=== PATIENT | female | born 1960 | race African-American/Black ===

== ENCOUNTER 2017-07-29 09:27 | Inpatient (IN) | payer MEDICARE, OTHER ==
[2017-07-29] VITALS (8 sets, daily range): BP systolic 107–147; BP diastolic 63–83; PULSE 81–107; RESP 16–20; TEMP 97.8–98.8; O2SAT 94–96
[~2017-07-29] VITALS: Ht 170.2 cm; Wt 161.6 kg
[~2017-07-29 09:27] MED LIST: ADVA250A INH; FERR324T4 PO; LEVEMIR SQ; LISI-363 PO; METF850T PO; NOVOLOGSS; STOO100C PO; WARF7.5 PO
[2017-07-29] MEDS ORDERED: METF1000 PO (09:52)
[2017-07-29] MEDS ORDERED: BP MED (09:52)
[2017-07-29] MEDS ORDERED: STATIN (09:52)
[2017-07-29] MEDS ORDERED: FURO20TA PO (09:52)
[2017-07-29] MEDS ORDERED: [UNRECOGNIZED DRUG - REMARK] (09:52)
[2017-07-29] MEDS ORDERED: XARE20TA PO (09:52)
[2017-07-29] MEDS ORDERED: LISI40TA PO (09:52)
--- NOTE | 2017-07-29 09:58 | PD ---
HPI Chief Complaint: GI Complaint Time Seen by Provider: 09:50 Travel History International Travel<30 days: No Contact w/Intl Traveler<30days: No Traveled to known affect area: No History of Present Illness HPI This 57-year-old female is complaining of vomiting and diarrhea. sHe started getting sick last Friday. The diarrhea has slowed down but she has persistent vomiting. She sometimes gets abdominal pain prior to the vomiting. She gets a warm feeling in her stomach. She has no history of abdominal surgery. She has a history of diabetes for over 20 years. She is currently on metformin and a nightly injection. She had been out of her metformin for several days up until a few days ago. 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 She has had a wound on her right foot for several years. She dresses the wound herself daily. 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 It has been draining purulent material. She says it has not changed for some time. PFSH Past Medical History Hx Anticoagulant Therapy: Yes (XERALTO) Arthritis: Yes Asthma: Yes Cancer: No Cardiovascular Problems: Yes High Cholesterol: Yes Diabetes: Yes Patient Takes Glucophage: Yes Diminished Hearing: No Endocrine: No Genitourinary: No Hypertension: Yes Implanted Vascular Access Dvce: No Musculoskeletal: Yes Neurologic: No Psychiatric: No Reproductive: No Respiratory: Yes (BRONCHITIS ) Sleep Apnea: Yes ?: Not Menopausal: Yes : 2 Para: 2 Tubal Ligation: Yes Past Surgical History Eye Surgery: Yes Gynecologic Surgery: Yes (TUBAL LIGATION) Other Surgery: Yes (RIGHT FOOT I AND D ) Social History Alcohol Use: No Tobacco Use: No Substance Use: No Allergies-Medications (Allergen,Severity, Reaction): Coded Allergies: Sulfa (Sulfonamide Antibiotics) (Unverified Allergy, Unknown, DIFFICULTY BREATHING, 07/29/17) Reported Meds & Prescriptions Reported Meds & Active Scripts Active Reported [Insulin Unk] Unknown Dose [Statin] [Bp Med] Furosemide 20 Mg Tab 20 Mg PO BID Metformin (Metformin HCl) 1,000 Mg Tab 1,000 Mg PO BIDPC Lisinopril 40 Mg Tab 40 Mg PO DAILY Xarelto (Rivaroxaban) 20 Mg Tab 20 Mg PO DAILY Review of Systems General / Constitutional: No: Fever, Chills Eyes: No: Diploplia, Blurred Vision HENT: No: Headaches, Vertigo Cardiovascular: No: Chest Pain or Discomfort, Palpitations Respiratory: No: Cough, Shortness of Breath Gastrointestinal: Positive: Nausea, Vomiting, Diarrhea, Abdominal Pain Genitourinary: No: Urgency, Frequency Skin: No Rash, No Itching Neurologic: Positive: Weakness Psychiatric: No: Anxiety Endocrine: No: Heat Intolerance, Cold Intolerance Hematologic/Lymphatic: No: Easy Bruising Physical Exam Narrative GENERAL: Well-developed female SKIN: Focused skin assessment warm/dry. HEAD: Atraumatic. Normocephalic. EYES: Pupils equal and round. No scleral icterus. No injection or drainage. ENT: No nasal bleeding or discharge. Mucous membranes pink and moist. NECK: Trachea midline. No JVD. CARDIOVASCULAR: Regular rate and rhythm. No murmur appreciated. RESPIRATORY: No accessory muscle use. Clear to auscultation. Breath sounds equal bilaterally. GASTROINTESTINAL: Abdomen soft, obese, non-tender, nondistended. Hepatic and splenic margins not palpable. MUSCULOSKELETAL: No obvious deformities. No clubbing. No cyanosis. No edema. The right foot has a large open area on the plantar surface which is draining purulent material NEUROLOGICAL: Awake and alert. No obvious cranial nerve deficits. Motor grossly within normal limits. Normal speech. PSYCHIATRIC: Appropriate mood and affect; insight and judgment normal. Data Data Last Documented VS Vital Signs Date Time Temp Pulse Resp B/P (MAP) Pulse Ox O2 Delivery O2 Flow Rate FiO2 07/29/17 12:05 105 20 127/70 (89) 95 07/29/17 09:30 98.6 Orders Orders Complete Blood Count With Diff (07/29/17 09:55) Comprehensive Metabolic Panel (07/29/17 09:55) Lipase (07/29/17 09:55) Urinalysis - C+S If Indicated (07/29/17 09:55) Sodium Chlor 0.9% 1000 Ml Inj (Ns 1000 M (07/29/17 10:00) Ondansetron Inj (Zofran Inj) (07/29/17 10:00) Beta Hydroxybutyrate (Acetone) (07/29/17 10:53) Insulin Human Regular Inj (Novolin R Inj (07/29/17 11:00) Ct Abd/Pel W/O Iv Contrast (07/29/17 10:55) Sodium Chlor 0.9% 1000 Ml Inj (Ns 1000 M (07/29/17 11:00) Ondansetron Inj (Zofran Inj) (07/29/17 11:00) Electrocardiogram (07/29/17 11:55) Wound Culture And Gram Stain (07/29/17 12:19) Foot, Complete (Bhf6vym) (07/29/17 12:21) Piperacil-Tazo 4.5 Gm Premix (Zosyn 4.5 (07/29/17 12:45) Vancomycin Inj (Vancomycin Inj) (07/29/17 12:45) Admit Order (Ed Use Only) (07/29/17 12:40) Labs Laboratory Tests Test 07/29/17 10:00 07/29/17 10:10 White Blood Count 15.7 TH/MM3 Red Blood Count 3.92 MIL/MM3 Hemoglobin 11.9 GM/DL Hematocrit 35.0 % Mean Corpuscular Volume 89.4 FL Mean Corpuscular Hemoglobin 30.4 PG Mean Corpuscular Hemoglobin Concent 34.0 % Red Cell Distribution Width 13.6 % Platelet Count 473 TH/MM3 Mean Platelet Volume 8.1 FL Neutrophils (%) (Auto) 79.7 % Lymphocytes (%) (Auto) 13.2 % Monocytes (%) (Auto) 4.0 % Eosinophils (%) (Auto) 0.7 % Basophils (%) (Auto) 2.4 % Neutrophils # (Auto) 12.5 TH/MM3 Lymphocytes # (Auto) 2.1 TH/MM3 Monocytes # (Auto) 0.6 TH/MM3 Eosinophils # (Auto) 0.1 TH/MM3 Basophils # (Auto) 0.4 TH/MM3 CBC Comment DIFF FINAL Differential Comment Blood Urea Nitrogen 24 MG/DL Creatinine 2.30 MG/DL Random Glucose 622 MG/DL Total Protein 9.9 GM/DL Albumin 2.4 GM/DL Calcium Level 9.3 MG/DL Alkaline Phosphatase 159 U/L Aspartate Amino Transf (AST/SGOT) 12 U/L Alanine Aminotransferase (ALT/SGPT) 17 U/L Total Bilirubin 0.2 MG/DL Sodium Level 131 MEQ/L Potassium Level 6.1 MEQ/L Chloride Level 93 MEQ/L Carbon Dioxide Level 30.0 MEQ/L Anion Gap 8 MEQ/L Estimat Glomerular Filtration Rate 26 ML/MIN Lipase 75 U/L B-Hydroxybutyrate 2.91 MMOL/L MDM Medical Decision Making Medical Screen Exam Complete: Yes Emergency Medical Condition: Yes Medical Record Reviewed: Yes Differential Diagnosis Differential includes gastroenteritis, dehydration, uncontrolled diabetes, bowel obstruction Narrative Course Sodium is 131 with potassium of 6.1. Her bicarb is 30. Blood sugar is 622. Her anion gap is only 8. She has been given IV fluids and insulin. CT scan has been ordered to assess for possible obstruction. CT is negative for obstruction is noted that she has diverticulosis without diverticulitis. There are no renal calculi. There is a small hiatal hernia and a large pelvic mass containing macroscopic fat likely a dermoid measuring 11 x 9 cm. Patient does have severe foot infection and will be started on Zosyn and vancomycin. X-ray is negative for evidence of osteomyelitis Diagnosis Primary Impression: Uncontrolled diabetes mellitus Additional Impression: Diabetic foot infection Admitting Information Admitting Physician Requests: Admit Wes Pierre MD Jul 29, 2017 09:58
[2017-07-29] MEDS ORDERED: SODIUM CHLOR 0.9% 1000 ML INJ 1,000 ML IV ONE ×2 (10:00→14:45)
[2017-07-29] MEDS ORDERED: ONDANSETRON HCL 4 MG/2 ML VIAL IV PUSH ONE ×2 (10:00→11:00)
[2017-07-29 10:09] LABS: AUTOMATED NEUTROPHIL # 12.5 TH/MM3 (1.8-7.7); BASOPHIL # 0.4 TH/MM3 (0-0.2); BASOPHIL % 2.4 % (0.0-2.0); EOSINOPHIL # 0.1 TH/MM3 (0-0.4); EOSINOPHIL % 0.7 % (0.0-4.0); HEMOGLOBIN 11.9 GM/DL (11.6-15.3); LYMPH % 13.2 % (9.0-44.0); LYMPHOCYTE # 2.1 TH/MM3 (1.0-4.8); MEAN CELL VOLUME 89.4 FL (80.0-100.0); MEAN CORPUSCULAR HEMOGLOBIN 30.4 PG (27.0-34.0); MEAN PLATELET VOLUME 8.1 FL (7.0-11.0); MONOCYTE # 0.6 TH/MM3 (0-0.9); NEUT % 79.7 % (16.0-70.0); PLATELET COUNT 473 TH/MM3 (150-450); RED BLOOD COUNT 3.92 MIL/MM3 (4.00-5.30); RED CELL DISTRIBUTION WIDTH 13.6 % (11.6-17.2); WHITE BLOOD COUNT 15.7 TH/MM3 (4.0-11.0)
[2017-07-29 10:34] LABS: CHLORIDE 93 MEQ/L (98-107); SODIUM (NA) 131 MEQ/L (136-145)
[2017-07-29 10:38] LABS: ALBUMIN 2.4 GM/DL (3.4-5.0); BLOOD UREA NITROGEN 24 MG/DL (7-18); CALCIUM 9.3 MG/DL (8.5-10.1)
[2017-07-29 10:41] LABS: ALT (GPT) 17 U/L (10-53); AST (GOT) 12 U/L (15-37); GLOMERULAR FILTRATION RATE 26 ML/MIN (>89)
[2017-07-29 10:43] LABS: TOTAL BILIRUBIN ADULT 0.2 MG/DL (0.2-1.0); TOTAL PROTEIN 9.9 GM/DL (6.4-8.2)
[2017-07-29 10:45] LABS: ALKALINE PHOSPHATASE 159 U/L (45-117)
[2017-07-29 10:47] LABS: GLUCOSE,RANDOM 622 MG/DL (74-106)
[2017-07-29] MEDS ORDERED: INSULIN HUMAN REGULAR 1,000 UNITS/10 ML VIAL SQ ONE ×2 (11:00→14:45)
--- NOTE | 2017-07-29 12:09 | RADRPT ---
EXAM DATE/TIME: 07/29/2017 11:48 [facility] COMPARISON: No previous studies available for comparison. INDICATIONS : Non specific abdominal pain and vomiting. ORAL CONTRAST: No oral contrast ingested. RADIATION DOSE: 34.96 CTDIvol (mGy) ; Patient body habitus MEDICAL HISTORY : Hypertension. Anticoagulant therapy. Diabetes. SURGICAL HISTORY : Tubal ligation. ENCOUNTER: Initial ACUITY: 4 - 6 days PAIN SCALE: 6/10 LOCATION: pelvis abdomen TECHNIQUE: Volumetric scanning of the abdomen and pelvis was performed. Using automated exposure control and ad justment of the mA and/or kV according to patient size, radiation dose was kept as low as reasonably achievable to obtain optimal diagnostic quality images. DICOM format image data is available electro nically for review and comparison. FINDINGS: LOWER LUNGS: The visualized lower lungs are clear. LIVER: Homogeneous density without lesion. There is no dilation of the biliary tree. No calcified gallston es. SPLEEN: Normal size without lesion. PANCREAS: Within normal limits. KIDNEYS: Normal in size and shape. There is no mass, stone, or hydronephrosis. ADRENAL GLANDS: Within normal limits. VASCULAR: There is no aortic aneurysm. Vascular calcifications. BOWEL/MESENTERY: Scattered diverticulosis without diverticulitis. There is no free intraperitoneal air or fluid. Thic kening of the distal esophagus with small hiatal hernia. ABDOMINAL WALL: Small fat-containing umbilical hernia. RETROPERITONEUM: There is no lymphadenopathy. BLADDER: No wall thickening or mass. REPRODUCTIVE: Large pelvic mass does contain some macroscopic fat could be related to large dermoid measuring 11.3 x 9.7 cm. INGUINAL: There is no lymphadenopathy or hernia. MUSCULOSKELETAL: Within normal limits for patient age. CONCLUSION: 1. Scattered diverticulosis without diverticulitis. 2. No renal calculi or hydronephrosis. 3. Small hiatal hernia and thickening of the distal because. 4. 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 Clinton Haji MD on July 29, 2017 at 12:04 Board Certified Radiologist. This report was verified electronically.
[2017-07-29] MEDS: SODIUM CHLOR 0.9% 1000 ML INJ 1,000 ML IV SCH ×5 (12:40→23:00)
--- NOTE | 2017-07-29 12:43 | RADRPT ---
EXAM DATE/TIME: 07/29/2017 12:24 [facility] COMPARISON: No previous studies available for comparison. INDICATIONS : Right foot wound on the plantar surface. MEDICAL HISTORY : Hypertension. Diabetes mellitus type II. SURGICAL HISTORY : None. ENCOUNTER: Initial ACUITY: >1 year PAIN SCORE: 5/10 LOCATION: Right plantar surface of foot. FINDINGS: 3 views of the right foot reveal pes planus. No radiopaque foreign body. No air within the subcutaneo us tissues. Atherosclerotic calcifications noted. Osteopenia observed. Osteoarthritis involving the g reat toe. Old trauma involving the proximal phalanx of the third toe. No acute fracture or dislocatio n. No cortical destruction. CONCLUSION: 1. No radiographic evidence to clearly suggest osteomyelitis. 2. Old trauma involving the proximal phalanx of the third toe. Kiko Mccarty Jr., MD on July 29, 2017 at 12:39 Board Certified Radiologist. This report was verified electronically.
[2017-07-29] MEDS ORDERED: PIPERACIL-TAZO 4.5 GM PREMIX 100 ML IV ONE (12:45)
[2017-07-29] MEDS ORDERED: VANCOMYCIN INJ 2,250 MG in SODIUM CHLORID 0.9% 500 ML INJ 500 ML IV ONE (12:45)
[2017-07-29] MEDS ORDERED: NALOXONE HCL 0.4 MG/ML AMP IV PUSH PRN (14:45)
[2017-07-29] MEDS ORDERED: GLUCAGON 1 MG/ML VIAL OTHER PRN (14:45)
[2017-07-29] MEDS ORDERED: SENNOSIDES 8.6 MG TAB PO PRN (14:45)
[2017-07-29] MEDS ORDERED: Vancomycin Consult Pharmacy 1 EA OTHER SCH (14:45)
[2017-07-29] MEDS ORDERED: SODIUM CHLORIDE 0.9% FLUSH 10 ML FLUSH IV FLUSH PRN (14:45)
[2017-07-29] MEDS ORDERED: VANCOMYCIN INJ 1,250 MG in SODIUM CHLOR 0.9% 250 ML INJ 250 ML IV SCH (14:45)
[2017-07-29] MEDS ORDERED: DEXTROSE 50% IN WATER 50 ML VIAL(D50) IV PUSH PRN (14:45)
[2017-07-29] MEDS ORDERED: ONDANSETRON HCL 4 MG/2 ML VIAL IVP PRN (14:45)
--- NOTE | 2017-07-29 14:53 | HHI.HP ---
[facility] Bharathi Miguel M.D. Admission Diagnosis UNCONTROLLED DIABETES, INFECTION RIGHT FOOT Diagnoses: Chief Complaint: Nausea and vomiting Travel History International Travel<30 Days: No Contact w/Intl Traveler <30 Da: No Traveled to Known Affected Are: No History of Present Illness This patient is a 57-year-old female with diabetes and hypertension. She recently relocated from [place] and in the last several weeks has found a primary care doctor. 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 Patient has some nausea and vomiting for the last 4 days. She has diarrhea and mid epigastric discomfort. She also noted her sugar was high at home. On arrival here it was over 600. Patient received some insulin. On exam the patient also has a right foot infection which has been going on for at least 5 months. She had been seeing a wound care doctor in [place] but has not followed up for the last several months that she has been here. She says there was a blister and it became much more foul-smelling in the last several days. She is tachycardic leukocytosis appears septic. She has severe abdominal pain with which is intermittent and not aggravated by food. She actually has not eaten because she was vomiting. She appears uremic with elevated potassium and acute kidney injury. Patient's been recommended for admission to the hospital Review of Systems Constitutional: DENIES: Diaphoretic episodes, Fatigue, Fever, Weight gain, Weight loss, Chills, Dizziness, Change in appetite, Night Sweats Endocrine: DENIES: Abnorml menstrual pattern, Heat/cold intolerance, Polydipsia , Polyuria, Polyphagia Eyes: DENIES: Blurred vision, Diplopia, Eye inflammation, Eye pain, Vision loss , Photosensitivity, Double Vision Ears, nose, mouth, throat: DENIES: Tinnitus, Hearing loss, Vertigo, Nasal discharge, Oral lesions, Throat pain, Hoarseness, Ear Pain, Running Nose, Epistaxis, Sinus Pain, Toothache, Odynophagia Respiratory: DENIES: Apneas, Cough, Snoring, Wheezing, Hemoptysis, Sputum production, Shortness of breath Cardiovascular: DENIES: Chest pain, Palpitations, Syncope, Dyspnea on Exertion , PND, Lower Extremity Edema, Orthopnea, Claudication Gastrointestinal: COMPLAINS OF: Abdominal pain, Nausea, Vomiting, Anorexia Genitourinary: DENIES: Abnormal vaginal bleeding, Dysmenorrhea, Dyspareunia, Sexual dysfunction, Urinary frequency, Urinary incontinence, Urgency, Hematuria , Dysuria, Nocturia, Vaginal discharge Musculoskeletal: DENIES: Joint pain, Muscle aches, Stiffness, Joint Swelling, Back pain, Neck pain Integumentary: DENIES: Abnormal pigmentation, Pruritus, Rash, Nail changes, Breast masses, Breast skin changes, Nipple discharge Hematologic/lymphatic: DENIES: Bruising, Lymphadenopathy Immunologic/allergic: DENIES: Eczema, Urticaria Neurologic: DENIES: Abnormal gait, Headache, Localized weakness, Paresthesias, Seizures, Speech Problems, Tremor, Poor Balance Psychiatric: DENIES: Anxiety, Confusion, Mood changes, Depression, Hallucinations, Agitation, Suicidal Ideation, Homicidal Ideation, Delusions Except as stated in HPI: all other systems reviewed are Neg Past Family Social History Past Medical History Hypertension Diabetes mellitus type 2 History of venous thrombo-embolic event Past Surgical History Right foot, tubal ligation Reported Medications Reviewed in the EMR, no new antibiotics Allergies: Coded Allergies: Sulfa (Sulfonamide Antibiotics) (Unverified Allergy, Unknown, DIFFICULTY BREATHING, 07/29/17) Active Ordered Medications Reviewed in the EMR Family History Mother and father had diabetes, brother has diabetes, sisters alive and well Physical Exam Vital Signs Vital Signs Date Time Temp Pulse Resp B/P (MAP) Pulse Ox O2 Delivery O2 Flow Rate FiO2 07/29/17 13:00 103 20 126/83 (97) 96 07/29/17 12:05 105 20 127/70 (89) 95 07/29/17 11:06 107 20 107/74 (85) 96 07/29/17 10:14 104 20 141/63 (89) 94 07/29/17 09:30 98.6 96 16 140/69 (92) 96 Physical Exam GENERAL: This is a well-nourished, obese female complaining of abdominal discomfort SKIN: No rashes, ecchymoses or lesions. Cool and dry. HEAD: Atraumatic. Normocephalic. No temporal or scalp tenderness. EYES: Pupils equal round and reactive. Extraocular motions intact. No scleral icterus. No injection or drainage. ENT: Nose without bleeding, purulent drainage or septal hematoma. Throat without erythema, tonsillar hypertrophy or exudate. Uvula midline. Airway patent. NECK: Trachea midline. No JVD or lymphadenopathy. Supple, nontender, no meningeal signs. CARDIOVASCULAR: Regular rate and rhythm without murmurs, gallops, or rubs. RESPIRATORY: Clear to auscultation. Breath sounds equal bilaterally. No wheezes , rales, or rhonchi. GASTROINTESTINAL: Abdomen soft, non-tender, nondistended. No hepato-splenomegaly , or palpable masses. No guarding. MUSCULOSKELETAL: Right foot with extreme sloughing, foul-smelling ulceration from the heel to the ball of the foot and encompassing the entire plantar surface, upper extremities without clubbing, cyanosis, or edema. No joint tenderness, effusion, or edema noted. No calf tenderness. Negative Homans sign bilaterally. NEUROLOGICAL: Awake and alert. Cranial nerves II through XII intact. Motor and sensory grossly within normal limits. Five out of 5 muscle strength in all muscle groups. Normal speech. Laboratory Laboratory Tests Test 07/29/17 10:00 07/29/17 10:10 07/29/17 14:20 White Blood Count 15.7 Red Blood Count 3.92 Hemoglobin 11.9 Hematocrit 35.0 Mean Corpuscular Volume 89.4 Mean Corpuscular Hemoglobin 30.4 Mean Corpuscular Hemoglobin Concent 34.0 Red Cell Distribution Width 13.6 Platelet Count 473 Mean Platelet Volume 8.1 Neutrophils (%) (Auto) 79.7 Lymphocytes (%) (Auto) 13.2 Monocytes (%) (Auto) 4.0 Eosinophils (%) (Auto) 0.7 Basophils (%) (Auto) 2.4 Neutrophils # (Auto) 12.5 Lymphocytes # (Auto) 2.1 Monocytes # (Auto) 0.6 Eosinophils # (Auto) 0.1 Basophils # (Auto) 0.4 CBC Comment DIFF FINAL Differential Comment Blood Urea Nitrogen 24 Creatinine 2.30 Random Glucose 622 Total Protein 9.9 Albumin 2.4 Calcium Level 9.3 Alkaline Phosphatase 159 Aspartate Amino Transf (AST/SGOT) 12 Alanine Aminotransferase (ALT/SGPT) 17 Total Bilirubin 0.2 Sodium Level 131 Potassium Level 6.1 Chloride Level 93 Carbon Dioxide Level 30.0 Anion Gap 8 Estimat Glomerular Filtration Rate 26 Lipase 75 B-Hydroxybutyrate 2.91 Date/Time Source Procedure Growth Status 07/29/17 12:25 Wound Foot Gram Stain Pending Received 07/29/17 12:25 Wound Foot Wound Culture Pending Received Result Diagram: 07/29/17 1000 07/29/17 1000 Imaging Last Impressions Abdomen/Pelvis CT 07/29/17 1055 Signed Impressions: Service Date/Time: Saturday, July 29, 2017 11:48 - CONCLUSION: 1. Scattered diverticulosis without diverticulitis. 2. No renal calculi or hydronephrosis. 3. Small hiatal hernia and thickening of the distal because. 4. 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 Clinton Haji MD Septic Shock Reassessment Septic shock perfusion: reassessment completed Caprini VTE Risk Assessment Caprini VTE Risk Assessment: Mod/High Risk (score >= 2) VTE Pharm Contraindication: Coagulopathy,INR elevated Caprini Risk Assessment Model Point Value = 1 Point Value = 2 Point Value = 3 Point Value = 5 Age 41-60 Minor surgery BMI > 25 kg/m2 Swollen legs Varicose veins or History of unexplained or recurrent spontaneous Oral contraceptives or hormone replacement Sepsis (< 1 month) Serious lung disease, including pneumonia (< 1 month) Abnormal pulmonary function Acute myocardial infarction Congestive heart failure (< 1 month) History of inflammatory bowel disease Medical patient at bed rest Age 61-74 Arthroscopic surgery Major open surgery (> 45 min) Laparoscopic surgery (> 45 min) Malignancy Confined to bed (> 72 hours) Immobilizing plaster cast Central venous access Age >= 75 History of VTE Family history of VTE Factor V Leiden Prothrombin [id number] Lupus anticoagulant Anticardiolipin antibodies Elevated serum homocysteine Heparin-induced thrombocytopenia Other congenital or acquired thrombophilia Stroke (< 1 month) Elective arthroplasty Hip, pelvis, or leg fracture Acute spinal cord injury (< 1 month) Prophylaxis Regimen Total Risk Factor Score Risk Level Prophylaxis Regimen 0-1 Low Early ambulation 2 Moderate Order ONE of the following: *Sequential Compression Device (SCD) *Heparin 5000 units SQ BID 3-4 Higher Order ONE of the following medications: *Heparin 5000 units SQ TID *Enoxaparin/Lovenox 40 mg SQ daily (WT < 150 kg, CrCl > 30 mL/min) *Enoxaparin/Lovenox 30 mg SQ daily (WT < 150 kg, CrCl > 10-29 mL/min) *Enoxaparin/Lovenox 30 mg SQ BID (WT < 150 kg, CrCl > 30 mL/min) AND/OR *Sequential Compression Device (SCD) 5 or more Highest Order ONE of the following medications: *Heparin 5000 units SQ TID (Preferred with Epidurals) *Enoxaparin/Lovenox 40 mg SQ daily (WT < 150 kg, CrCl > 30 mL/min) *Enoxaparin/Lovenox 30 mg SQ daily (WT < 150 kg, CrCl > 10-29 mL/min) *Enoxaparin/Lovenox 30 mg SQ BID (WT < 150 kg, CrCl > 30 mL/min) AND *Sequential Compression Device (SCD) Assessment and Plan Problem List: (1) Pelvic mass ICD Code: R19.00 - Intra-abdominal and pelvic swelling, mass and lump, unspecified site Plan: follow clinically (2) Diabetic foot infection ICD Code: E11.69 - Type 2 diabetes mellitus with other specified complication; L08.9 - Local infection of the skin and subcutaneous tissue, unspecified Status: Acute Plan: We will check MRI to rule out osteomyelitis in this infection Continue vancomycin and Zosyn Follow-up with podiatry for possible surgical treatment With sepsis present on admission, continue IV hydration and follow-up blood cultures (3) Uncontrolled diabetes mellitus ICD Code: E11.65 - Type 2 diabetes mellitus with hyperglycemia Status: Acute Plan: Patient is not sure of her regimen at home other than she takes metformin We will hold metformin given patient's need for inpatient stay Continue with insulin per sliding scale plus Levemir and insulin with meals Follow hemoglobin A1c Patient education (4) CKD (chronic kidney disease) stage 3, GFR 30-59 ml/min ICD Code: N18.3 - Chronic kidney disease, stage 3 (moderate) Plan: Patient with nausea and vomiting and hyperkalemia, she may be uremic We will follow with nephrology Assessment and Plan Plan of care to determine hospital course Patient on Xarelto due to previous blood clot and will hold this and use heparin for now as patient may need surgery Code Status Full code Physician Certification 2 Midnight Certification Type: Admission for Inpatient Services Order for Inpatient Services The services are ordered in accordance with Medicare regulations or non- Medicare payer requirements, as applicable. In the case of services not specified as inpatient-only, they are appropriately provided as inpatient services in accordance with the 2-midnight benchmark. Estimated LOS (days): 4 4 days is the estimated time the patient will need to remain in the hospital, assuming treatment plan goals are met and no additional complications. Post-Hospital Plan: Yesenia Rice MD Jul 29, 2017 14:53
[2017-07-29 15:36] LABS: BICARBONATE 27.7 MEQ/L (21.0-32.0); CALCIUM 8.6 MG/DL (8.5-10.1); CREATININE 2.2 MG/DL (0.50-1.00)
--- NOTE | 2017-07-29 17:19 | RADRPT ---
EXAM DATE/TIME: 07/29/2017 16:31 [facility] COMPARISON: FOOT RIGHT COMPLETE ([id number]), July 29, 2017, 12:24. INDICATIONS : Abscess. Wound bottom of right foot MEDICAL HISTORY : Diabetes mellitus type 2. Hypertension. SURGICAL HISTORY : Tubal ligation. ENCOUNTER: Subsequent ACUITY: > 1 year PAIN SCORE: 5/10 LOCATION: Right foot TECHNIQUE: Multiplanar, multisequence MRI examination was performed without contrast. FINDINGS: BONE/CARTILAGE: There is normal signal throughout the bony structures. Mild primary degenerative changes are present. No abnormal bone marrow edema is demonstrated. TENDONS: Tendons appear to be grossly intact. MISCELLANEOUS: There is some nonspecific abnormal soft tissue along the dorsum of the foot. This is suggestive of ed bebo and granulomatous type tissue. No loculated fluid collections are demonstrated. This area of abno rmal soft tissue measures approximately 3.4 x 2.5 cm. On the sagittal images appears to disrupt the p lantar aponeurosis. CONCLUSION: 1. Focal abnormal collection of soft tissue along the dorsum of the foot measuring 2.5 x 3.4 cm. This is suggestive of a inflammatory process and/or granulomatous tissue. No loculated fluid collection i s seen to indicate an abscess. 2. No evidence of osteomyelitis. Raymond Arroyo MD on July 29, 2017 at 17:14 Board Certified Radiologist. This report was verified electronically.
[2017-07-29] MEDS: INSULIN ASPART SUPPLEMENTAL SCALE SQ SCH ×2 (18:55→22:53)
[2017-07-29] MEDS: INSULIN HUMAN REGULAR 1,000 UNITS/10 ML VIAL SQ SCH (18:56)
[2017-07-29] MEDS ORDERED: INSULIN DETEMIR 100 UNITS/ML VIAL SQ SCH (21:00)
[2017-07-29 22:53] LABS: BLOOD, URINE NEG (NEG); GLUCOSE,URINE 1000 OR GREATER mg/dL (NEG); KETONE, URINE TRACE mg/dL (NEG); NITRITE,URINE NEG (NEG); PH, URINE 5.5 (5.0-8.5); URINE COLOR YELLOW (YELLW/STRAW); URINE LEUKOCYTE ESTERASE NEG (NEG)
[2017-07-29 22:55] LABS: BILIRUBIN, URINE NEG (NEG)
[2017-07-29] MEDS: HEPARIN SODIUM - SQ 10,000 UNITS/ML VIAL SQ SCH (22:55)
[2017-07-29] MEDS: SODIUM CHLORIDE 0.9% FLUSH 10 ML FLUSH IV FLUSH SCH (22:57)
[2017-07-29 23:07] LABS: BACTERIA, URINE FEW /hpf; RBC, URINE 0-3 /hpf (0-3); WBC, URINE 0-2 /hpf (0-5)
[2017-07-29] MEDS: PIPERACIL-TAZO 4.5 GM PREMIX 100 ML IV SCH (23:30)
[2017-07-30] VITALS: BP 119/58; PULSE 91; RESP 20; TEMP 99.2; O2SAT 95
[2017-07-30] MEDS: PIPERACIL-TAZO 4.5 GM PREMIX 100 ML IV SCH (05:13)
[2017-07-30] MEDS: SODIUM CHLOR 0.9% 1000 ML INJ 1,000 ML IV SCH ×3 (05:16→21:01)
--- NOTE | 2017-07-30 07:32 | PD.POD ---
Past Med/Surg/Social History Social History Smoking Status: Never Smoker Objective Vital Signs Vital Signs Date Time Temp Pulse Resp B/P (MAP) Pulse Ox O2 Delivery O2 Flow Rate FiO2 07/30/17 00:00 99.2 91 20 119/58 (78) 95 07/29/17 21:00 103 07/29/17 20:00 98.8 100 20 125/64 (84) 96 07/29/17 17:10 07/29/17 17:10 97.8 81 20 147/68 (94) 95 07/29/17 13:00 103 20 126/83 (97) 96 07/29/17 12:05 105 20 127/70 (89) 95 07/29/17 11:06 107 20 107/74 (85) 96 07/29/17 10:14 104 20 141/63 (89) 94 07/29/17 09:30 98.6 96 16 140/69 (92) 96 Coded Allergies: Sulfa (Sulfonamide Antibiotics) (Unverified Allergy, Unknown, DIFFICULTY BREATHING, 07/29/17) Assessment & Plan A/P FULL CONSULT DICTATED. Right diabetic foot ulcer with infection Charcot Plan for operative debridement will obtain deep cultures and likely wound VAC application. Will likely need long-term IV antibiotics and strict hyperglycemic control. Reviewed case with Dr. Martinez who will likely form surgery in the Jagdish Fowler DPM Jul 30, 2017 07:32
[2017-07-30 07:33] LABS: AUTOMATED NEUTROPHIL # 9.7 TH/MM3 (1.8-7.7); BASOPHIL # 0.1 TH/MM3 (0-0.2); BASOPHIL % 0.5 % (0.0-2.0); EOSINOPHIL # 0.4 TH/MM3 (0-0.4); EOSINOPHIL % 3.2 % (0.0-4.0); HEMATOCRIT 30.2 % (35.0-46.0); HEMOGLOBIN 9.8 GM/DL (11.6-15.3); LYMPH % 19.6 % (9.0-44.0); LYMPHOCYTE # 2.6 TH/MM3 (1.0-4.8); MEAN CELL VOLUME 88.3 FL (80.0-100.0); MEAN CORPUSCULAR HEMOGLOBIN 28.8 PG (27.0-34.0); MEAN CORPUSCULAR HGB CONC 32.5 % (32.0-36.0); MEAN PLATELET VOLUME 7.8 FL (7.0-11.0); MONO % 3.9 % (0.0-8.0); MONOCYTE # 0.5 TH/MM3 (0-0.9); NEUT % 72.8 % (16.0-70.0); PLATELET COUNT 439 TH/MM3 (150-450); RED BLOOD COUNT 3.41 MIL/MM3 (4.00-5.30); RED CELL DISTRIBUTION WIDTH 13.2 % (11.6-17.2); WHITE BLOOD COUNT 13.3 TH/MM3 (4.0-11.0)
[2017-07-30 07:53] LABS: CHLORIDE 103 MEQ/L (98-107); SODIUM (NA) 139 MEQ/L (136-145)
[2017-07-30 07:57] LABS: BICARBONATE 28.7 MEQ/L (21.0-32.0); CALCIUM 8.1 MG/DL (8.5-10.1)
[2017-07-30 08:00] VITALS: BP 120/64; PULSE 90; PULSE 91; RESP 14; TEMP 98.3; O2SAT 97
[2017-07-30 08:18] LABS: ALKALINE PHOSPHATASE 118 U/L (45-117); ALT (GPT) 10 U/L (10-53); AST (GOT) 7 U/L (15-37); BLOOD UREA NITROGEN 23 MG/DL (7-18); GLOMERULAR FILTRATION RATE 26 ML/MIN (>89); GLUCOSE,RANDOM 264 MG/DL (74-106); TOTAL BILIRUBIN ADULT 0.4 MG/DL (0.2-1.0); TOTAL PROTEIN 7.9 GM/DL (6.4-8.2)
[2017-07-30 08:30] VITALS: O2SAT 95
[2017-07-30] MEDS: INSULIN ASPART SUPPLEMENTAL SCALE SQ SCH ×4 (08:52→22:08)
[2017-07-30] MEDS: SODIUM CHLORIDE 0.9% FLUSH 10 ML FLUSH IV FLUSH SCH ×2 (08:53→22:14)
[2017-07-30] MEDS: HEPARIN SODIUM - SQ 10,000 UNITS/ML VIAL SQ SCH ×2 (08:53→22:07)
[2017-07-30] MEDS: LISINOPRIL 20 MG TAB PO SCH (08:53)
[2017-07-30] MEDS ORDERED: RIVAROXABAN 20 MG TAB PO SCH (09:00)
--- NOTE | 2017-07-30 09:07 | HHI.PR ---
Subjective Remarks Follow-up uncontrolled diabetes and right infected foot. Patient seen and examined, sitting on side of bed eating breakfast. Denies any pain. Denies any acute complaints. Podiatry in today to see patient, anticipate I&D in OR tomorrow with wound VAC placement. Vital signs are stable. Afebrile. Objective Vitals Vital Signs Date Time Temp Pulse Resp B/P (MAP) Pulse Ox O2 Delivery O2 Flow Rate FiO2 07/30/17 00:00 99.2 91 20 119/58 (78) 95 07/29/17 21:00 103 07/29/17 20:00 98.8 100 20 125/64 (84) 96 07/29/17 17:10 07/29/17 17:10 97.8 81 20 147/68 (94) 95 07/29/17 13:00 103 20 126/83 (97) 96 07/29/17 12:05 105 20 127/70 (89) 95 07/29/17 11:06 107 20 107/74 (85) 96 07/29/17 10:14 104 20 141/63 (89) 94 07/29/17 09:30 98.6 96 16 140/69 (92) 96 I/O 07/29/17 07/29/17 07/29/17 07/30/17 07/30/17 07/30/17 07:00 15:00 23:00 07:00 15:00 23:00 Intake Total 1680 ml Output Total 1000 ml Balance 680 ml Intake Oral 480 ml IV Total 1200 ml Output Urine Total 1000 ml Result Diagram: 07/30/17 0700 07/30/17 0700 Imaging Last Impressions Foot X-Ray 07/29/17 1221 Signed Impressions: Service Date/Time: Saturday, July 29, 2017 12:24 - CONCLUSION: 1. No radiographic evidence to clearly suggest osteomyelitis. 2. Old trauma involving the proximal phalanx of the third toe. Kiko Mccarty Jr., MD Abdomen/Pelvis CT 07/29/17 1055 Signed Impressions: Service Date/Time: Saturday, July 29, 2017 11:48 - CONCLUSION: 1. Scattered diverticulosis without diverticulitis. 2. No renal calculi or hydronephrosis. 3. Small hiatal hernia and thickening of the distal because. 4. 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 Clinton Haji MD Foot MRI 07/29/17 0000 Signed Impressions: Service Date/Time: Saturday, July 29, 2017 16:31 - CONCLUSION: 1. Focal abnormal collection of soft tissue along the dorsum of the foot measuring 2.5 x 3.4 cm. This is suggestive of a inflammatory process and/or granulomatous tissue. No loculated fluid collection is seen to indicate an abscess. 2. No evidence of osteomyelitis. Raymond Arroyo MD Objective Remarks GENERAL: Well-developed, obese female patient in NAD. SKIN: Warm and dry. No rash. HEAD: Normocephalic. Atraumatic. EYES: Pupils equal and round. No scleral icterus. No injection or drainage. ENT: No nasal bleeding or discharge. Mucous membranes pink and moist. NECK: Supple. Trachea midline. CARDIOVASCULAR: Regular rate and rhythm. S1, S2 noted. No murmur appreciated. RESPIRATORY: No accessory muscle use. Clear to auscultation. Breath sounds equal bilaterally. GASTROINTESTINAL: Abdomen soft, non-tender, nondistended. Normoactive bowel sounds x4. MUSCULOSKELETAL: Right lower extremity dressing in place to infected wound. Right pedal pulses 1+. NEUROLOGICAL: Awake and alert. No obvious cranial nerve deficits. Motor grossly within normal limits. 5/5 muscle strength in bilateral upper and lower extremities. Normal speech. PSYCHIATRIC: Appropriate mood and affect; insight and judgment normal. A/P Problem List: (1) Pelvic mass ICD Code: R19.00 - Intra-abdominal and pelvic swelling, mass and lump, unspecified site Plan: Follow clinically (2) Diabetic foot infection ICD Code: E11.69 - Type 2 diabetes mellitus with other specified complication; L08.9 - Local infection of the skin and subcutaneous tissue, unspecified Status: Acute Plan: MRI of the right foot showing no osteomyelitis and no abscess. Continue vancomycin and Zosyn. Consult placed to ID, may need extended antibiotic coverage per podiatry recommendations. Follow-up with podiatry for possible surgical treatment tomorrow for I&D and wound vac placement. With sepsis present on admission, continue IV hydration and follow-up blood cultures (3) Uncontrolled diabetes mellitus ICD Code: E11.65 - Type 2 diabetes mellitus with hyperglycemia Status: Acute Plan: Patient is not sure of her regimen at home other than she takes metformin. We will hold metformin given patient's need for inpatient stay. Continue with insulin per sliding scale plus Levemir and insulin with meals. Increase Levemir twice daily. Follow hemoglobin A1c still pending. Start atorvastatin, mild hypertriglyceridemia. Patient education. (4) CKD (chronic kidney disease) stage 3, GFR 30-59 ml/min ICD Code: N18.3 - Chronic kidney disease, stage 3 (moderate) Plan: Patient with nausea and vomiting and hyperkalemia, she may be uremic Hyperkalemia improving. 4.2 today. We will follow with nephrology, appreciate further recommendations. Discharge Planning Patient will undergo I&D of right infected foot tomorrow in the OR with wound VAC placement, 2-3 days per discharge. Izabel Stiles Jul 30, 2017 09:07
--- NOTE | 2017-07-30 09:08 | MB ---
cc: Jagdish Valderrama DPM DATE OF CONSULT: REASON FOR CONSULTATION: Right diabetic foot ulcer. 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 Apparently, this has closed to a pinpoint area in previous years, but now she is dealing with significant opening of the wound, drainage, nausea and uncontrolled glucose. Currently I am seeing the patient bedside. She denies any current nausea or vomiting and she states she is improving. PAST MEDICAL HISTORY: Positive for diabetes, hypertension, history of venous thromboembolic event. PAST SURGICAL HISTORY: Right foot likely debridement and wound VAC, history of tubal ligation. REPORTED INPATIENT MEDICATIONS REVIEWED : The patient is receiving vancomycin and Zosyn. ALLERGIES: SULFA PHYSICAL EXAMINATION: VITAL SIGNS: Temperature 99.2, pulse rate 91, respiratory rate 20, blood pressure 119/58, she is satting 95% on room air. This is an alert and oriented female seen bedside exhibiting nonlabored respirations. The right lower extremity is examined. There is noted to be a rocker-bottom foot type with the posterior heel hemorrhagic ulcer, wet eschar with minimal periwound erythema. There is serous drainage of the plantar aspect of the midfoot. There is noted to be an expansile ulcer with mixed fibrotic granular base. The wound measurements are approximately 12 cm x 6 cm. There is a mely-hyperkeratotic rim. There is fissure undermining noted at the wound periphery. It does probe deep. I am unsure if this probes directly to bone, but there is no bone visible or tendon visible through the wound. There is serous mixed purulent drainage. There is moderate malodor but no obvious soft tissue emphysema. There is induration and edema to the dorsum of the foot. There is no palpable soft tissue crepitus. There is moderate contractures of the digits. There is range of motion of the ankle, limited range of motion of the hind foot and forefoot. Sensation is significantly decreased to the bilateral extremities below the bilateral ankle. Pulses appear to be palpable, decreased and the foot is warm. LABORATORY DATA: White blood cell, there is a trend 15.7 down to 13.3. Hemoglobin and hematocrit 9 and 30. Platelet count is 439. Chem-7 sodium is 139, potassium 4.2, chloride 103. CO2 28.7. BUN is 24, creatinine 2.2. Random glucose is 457. Wound culture is ordered and pending. Blood culture ordered and pending. IMAGING FINDINGS: Plain film x-ray did not show any obvious soft tissue emphysema, there is no obvious gas within the tissue, there appears to be a significant pes planus with evidence of calcified arteries, there appears to be a severe arthritic finding seen at the talonavicular, calcaneocuboid and midfoot joint and it appears to be intact without any active signs of Charcot. MRI findings: There is no distinct signs of osteomyelitis or drainable abscess but there is mention of a focal abnormal collection of soft tissue along the dorsum of the foot suggestive of an inflammatory process. ASSESSMENT AND PLAN: Right diabetic foot ulcer, underlying Charcot with heel ulcer. The plan is to continue IV antibiotics, operative debridement with likely application of wound VAC will take place in the next 24-48 hours pending OR availability. The patient appears to be improving. Will likely need Infectious Disease consultation. Initially I do not think the patient has any decreased vascular flow; however, we will make note at the time of surgery if there is decreased bleeding and move forward with the appropriate consultation if needed at that time. I had a long discussion with the patient regarding the need for strict hyperglycemic control. She will need to be non-weightbearing of the right lower extremity. She may need physical therapy evaluation and wheelchair training. There is an elevated risk of below-knee amputation in this patient eventually. If the ulcer continues to grow larger, involve the heel bone or the midfoot, there is a high chance that this foot would break down and become a nonfunctional appendage and she would need a below-knee amputation. She wishes for all limb salvage efforts and I agree that is what we will try at this time. I discussed the case in great detail with Dr. Martinez who will be assuming care within the next 1-2 days. ERI Aguilar/TL/ , 08:22 AM , 08:52 AM
[2017-07-30] MEDS: INSULIN HUMAN REGULAR 1,000 UNITS/10 ML VIAL SQ SCH ×3 (09:20→17:58)
[2017-07-30 09:48] LABS: CHOLESTEROL 115 MG/DL (120-200)
[2017-07-30 09:50] LABS: CHOLESTEROL/ HDL RATIO 3.08 RATIO; HDL CHOLESTEROL 37.3 MG/DL (40.0-60.0); LDL CHOLESTEROL 40 MG/DL (0-99); TRIGLYCERIDES 189 MG/DL (42-150)
[2017-07-30] MEDS ORDERED: PNEUMOCOCCAL POLYVALENT INJ 25 MCG/0.5 ML SYR IM ONE (10:00)
[2017-07-30 12:00] VITALS: BP 137/79; PULSE 84; RESP 16; TEMP 98.2; O2SAT 92
--- NOTE | 2017-07-30 14:42 | PD.CONS ---
HPI Consult Requested By Reason for Consult Chronic kidney disease? Acute renal insufficiency? Primary Care Physician Bharathi Miguel M.D. History of Present Illness This patient is a 57-year-old Afro-Russian female with a history of long- standing diabetes mellitus and hypertension and from the records I reviewed some noncompliance with medical care. She was previously hospitalized at this institution back in October 2012. At that time she was admitted with a left lower extremity diabetic wounds and was noted to have acute renal insufficiency. She subsequently left the hospital AMA. On October 24, 2012 her creatinine level was noted to be 2.09. She subsequently was admitted to [facility] and her creatinine level improved at time of discharge 0.6. Appears that the patient went up north to [place]. Patient is a very poor historian when it comes to details regarding her previous medical history. She cannot indicates to me what continuity of care she had out of state or the name of the physician that she was seeing a when her last bar to study was done prior to this admission. Subsequently admitted to this institution with a history of nausea and vomiting. Noted to have significant hyperglycemia. Creatinine level on presentation was elevated and is currently 2.3 at time of consultation with an estimated GFR of 26. Also anemic with a hemoglobin of 9.8. Patient indicates that she was using Aleve twice daily for about 7 days prior to presentation. CT scan indicated the presence of a large pelvic mass but nothing significant reported as far as her kidneys were concerned i.e. no hydronephrosis. Also on presentation patient noted to have diabetic ulcer lower extremity with drainage. Review of Systems Constitutional: DENIES: Diaphoretic episodes, Fatigue, Fever, Weight gain, Weight loss, Chills, Dizziness, Change in appetite, Night Sweats Eyes: DENIES: Blurred vision Cardiovascular: DENIES: Chest pain, Palpitations, Syncope, Dyspnea on Exertion , PND, Lower Extremity Edema, Orthopnea, Claudication Gastrointestinal: COMPLAINS OF: Nausea (on presentation), Vomiting (on presentation), DENIES: Abdominal pain, Black stools, Bloody stools, Constipation , Diarrhea, Difficulty Swallowing, Anorexia Musculoskeletal: COMPLAINS OF: Joint pain, DENIES: Muscle aches, Stiffness, Joint Swelling, Back pain, Neck pain Past Family Social History Allergies: Coded Allergies: Sulfa (Sulfonamide Antibiotics) (Unverified Allergy, Unknown, DIFFICULTY BREATHING, 07/29/17) Past Medical History Previous acute renal insufficiency back in 2012. Diabetes mellitus Hypertension. History of a venous thrombosis 2012?. Probable poor follow-up as well as medical care is concerned. Past Surgical History Noncontributory to current complaint. Reported Medications Reported Meds & Active Scripts Active Reported [Insulin Unk] Unknown Dose [Statin] [Bp Med] Furosemide 20 Mg Tab 20 Mg PO BID Metformin (Metformin HCl) 1,000 Mg Tab 1,000 Mg PO BIDPC Lisinopril 40 Mg Tab 40 Mg PO DAILY Xarelto (Rivaroxaban) 20 Mg Tab 20 Mg PO DAILY Active Ordered Medications Current Medications Sodium Chloride 1,000 ml @ 999 mls/hr BOLUS ONCE IV Last administered on at 10:06; Start 07/29/17 at 10:00; Stop 07/29/17 at 11:00; Status DC Ondansetron HCl (Zofran Inj) 4 mg ONCE ONCE IV PUSH Last administered on at 10:07; Start 07/29/17 at 10:00; Stop 07/29/17 at 10:02; Status DC Insulin Human Regular (NovoLIN R INJ) 15 units ONCE ONCE SQ Last administered on 07/29/17at 11:01; Start 07/29/17 at 11:00; Stop 07/29/17 at 11:01; Status DC Sodium Chloride 1,000 ml @ 250 mls/hr Q4H IV Last administered on 07/29/17at 12: 40; Start 07/29/17 at 11:00; Stop 07/30/17 at 00:30; Status DC Ondansetron HCl (Zofran Inj) 4 mg ONCE ONCE IV PUSH Last administered on at 11:03; Start 07/29/17 at 11:00; Stop 07/29/17 at 11:01; Status DC Piperacillin Sod/ Tazobactam Sod 100 ml @ 200 mls/hr ONCE ONCE IV Last administered on 07/29/17at 12:45; Start 07/29/17 at 12:45; Stop 07/29/17 at 13:14; Status DC Vancomycin HCl 2250 mg/Sodium Chloride 522.5 ml @ 250 mls/hr ONCE ONCE IV Last administered on 07/29/17at 13:57; Start 07/29/17 at 12:45; Stop 07/29/17 at 14: 50; Status DC Insulin Human Regular (NovoLIN R INJ) 15 units ONCE ONCE SQ Last administered on 07/29/17at 15:01; Start 07/29/17 at 14:45; Stop 07/29/17 at 14:54; Status DC Sodium Chloride 1,000 ml @ 100 mls/hr Q10H IV Last administered on 07/30/17at 12 :40; Start 07/29/17 at 14:37 Sodium Chloride (NS Flush) 2 ml UNSCH PRN IV FLUSH FLUSH AFTER USING IV ACCESS ; Start 07/29/17 at 14:45 Sodium Chloride (NS Flush) 2 ml BID IV FLUSH Last administered on 07/30/17at 08: 53; Start 07/29/17 at 21:00 Acetaminophen (Tylenol) 650 mg Q4H PRN PO TEMP > 100.4; Start 07/29/17 at 14:45 Ondansetron HCl (Zofran Inj) 4 mg Q6H PRN IVP NAUSEA OR VOMITING; Start at 14:45 Naloxone HCl (Narcan Inj) 0.4 mg UNSCH PRN IV PUSH SEE LABEL COMMENTS; Start at 14:45 Sennosides (Senokot) 17.2 mg Q12H PRN PO Moderate constipation; Start 07/29/17 at 14:45 Dextrose (D50w (Vial) Inj) 50 ml UNSCH PRN IV PUSH HYPOGLYCEMIA-SEE COMMENTS; Start 07/29/17 at 14:45 Glucagon (Glucagon Inj) 1 mg UNSCH PRN OTHER HYPOGLYCEMIA-SEE COMMENTS; Start 07/29/17 at 14:45 Insulin Aspart (NovoLOG SUPPLEMENTAL SCALE) 1 ACHS SLIDING SCALE SQ Last administered on 07/30/17at 12:40; Start 07/29/17 at 17:00 Rivaroxaban (Xarelto) 20 mg DAILY PO ; Start 07/30/17 at 09:00; Stop 07/30/17 at 09:00; Status DC Lisinopril (Prinivil) 40 mg DAILY PO Last administered on 07/30/17at 08:53; Start 07/30/17 at 09:00 Insulin Detemir (Levemir Inj) 10 units HS SQ Last administered on 07/29/17at 22: 54; Start 07/29/17 at 21:00; Stop 07/30/17 at 12:40; Status DC Insulin Human Regular (NovoLIN R INJ) 5 units TIDPC SQ Last administered on 07/30at 13:09; Start 07/29/17 at 18:30 Vancomycin HCl 1250 mg/Sodium Chloride 262.5 ml @ 262.5 mls/ hr Q12H IV ; Start 07/29/17 at 14:45; Status UNV Pharmacy Profile Note 0 ml @ 0 mls/hr UNSCH OTHER ; Start 07/29/17 at 14:45 Piperacillin Sod/ Tazobactam Sod 100 ml @ 200 mls/hr Q8H IV Last administered on 07/30/17at 05:13; Start 07/29/17 at 21:00; Stop 07/30/17 at 12:05; Status DC Heparin Sodium (Porcine) (Heparin Inj) 5,000 units Q12HR SQ Last administered on 07/30/17at 08:53; Start 07/29/17 at 21:00; Status Future Hold Sodium Chloride 1,000 ml @ 999 mls/hr BOLUS ONCE IV Last administered on at 18:23; Start 07/29/17 at 14:45; Stop 07/29/17 at 15:45; Status DC Vancomycin HCl 1600 mg/Sodium Chloride 516 ml @ 250 mls/hr DAILY@2000 IV ; Start 07/30/17 at 20:00 Miscellaneous Information SPECIFIC LAB TO BE DRAWN:VANCO TROUGH DATE... ONCE ONCE .XX ; Start 08/01/17 at 19:45; Stop 08/01/17 at 19:46 Pneumococcal Polyvalent Vaccine (Pneumovax-23 Inj) 25 mcg ONCE ONCE IM Last administered on 07/30/17at 12:43; Start 07/30/17 at 10:00; Stop 07/30/17 at 10:01; Status DC Piperacillin Sod/ Tazobactam Sod 50 ml @ 100 mls/hr Q6H IV ; Start 07/30/17 at 15:00 Insulin Detemir (Levemir Inj) 10 units BID SQ ; Start 07/30/17 at 21:00 Atorvastatin Calcium (Lipitor) 20 mg DAILY PO ; Start 07/31/17 at 09:00 Family History Noncontributory current complaint. 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 No history of illicit drug use. Physical Exam Vital Signs Vital Signs Date Time Temp Pulse Resp B/P (MAP) Pulse Ox O2 Delivery O2 Flow Rate FiO2 07/30/17 12:00 98.2 84 16 137/79 (98) 92 07/30/17 08:30 95 21 07/30/17 08:00 98.3 91 14 120/64 (82) 97 07/30/17 08:00 90 07/30/17 00:00 99.2 91 20 119/58 (78) 95 07/29/17 21:00 103 07/29/17 20:00 98.8 100 20 125/64 (84) 96 07/29/17 17:10 07/29/17 17:10 97.8 81 20 147/68 (94) 95 Physical Exam GENERAL: Obese female sitting in chair and not in respiratory distress. SKIN: Warm and dry. HEAD: Normocephalic. EYES: No scleral icterus. No injection or drainage. NECK: Supple, trachea midline. No JVD or lymphadenopathy. CARDIOVASCULAR: Regular rate and rhythm without murmurs, gallops, or rubs. RESPIRATORY: Breath sounds equal bilaterally. No accessory muscle use. GASTROINTESTINAL: Abdomen soft, non-tender, nondistended. MUSCULOSKELETAL: No cyanosis, trace edema right foot. Dressing overlying her wound was not disturbed.. BACK: Nontender without obvious deformity. No CVA tenderness. Laboratory Laboratory Tests Test 07/29/17 15:47 07/29/17 18:15 07/29/17 22:40 07/30/17 07:00 Lactic Acid Level 1.6 Random Glucose 457 264 Urine Color YELLOW Urine Turbidity CLEAR Urine pH 5.5 Urine Specific [place] 1.010 Urine Protein NEG Urine Glucose (UA) 1000 OR GREATER Urine Ketones TRACE Urine Occult Blood NEG Urine Nitrite NEG Urine Bilirubin NEG Urine Urobilinogen 0.2 Urine Leukocyte Esterase NEG Urine RBC 0-3 Urine WBC 0-2 Urine Squamous Epithelial Cells 6-8 Urine Bacteria FEW Microscopic Urinalysis Comment CULT NOT INDICATED White Blood Count 13.3 Red Blood Count 3.41 Hemoglobin 9.8 Hematocrit 30.2 Mean Corpuscular Volume 88.3 Mean Corpuscular Hemoglobin 28.8 Mean Corpuscular Hemoglobin Concent 32.5 Red Cell Distribution Width 13.2 Platelet Count 439 Mean Platelet Volume 7.8 Neutrophils (%) (Auto) 72.8 Lymphocytes (%) (Auto) 19.6 Monocytes (%) (Auto) 3.9 Eosinophils (%) (Auto) 3.2 Basophils (%) (Auto) 0.5 Neutrophils # (Auto) 9.7 Lymphocytes # (Auto) 2.6 Monocytes # (Auto) 0.5 Eosinophils # (Auto) 0.4 Basophils # (Auto) 0.1 CBC Comment DIFF FINAL Differential Comment Blood Urea Nitrogen 23 Creatinine 2.30 Total Protein 7.9 Albumin 2.0 Calcium Level 8.1 Alkaline Phosphatase 118 Aspartate Amino Transf (AST/SGOT) 7 Alanine Aminotransferase (ALT/SGPT) 10 Total Bilirubin 0.4 Sodium Level 139 Potassium Level 4.2 Chloride Level 103 Carbon Dioxide Level 28.7 Anion Gap 7 Estimat Glomerular Filtration Rate 26 Triglycerides Level 189 Cholesterol Level 115 LDL Cholesterol 40 HDL Cholesterol 37.3 Cholesterol/HDL Ratio 3.08 Date/Time Source Procedure Growth Status 07/29/17 15:50 Blood Peripheral Aerobic Blood Culture - Preliminary NO GROWTH IN 1 DAY Resulted 07/29/17 15:50 Blood Peripheral Anaerobic Blood Culture - Preliminary NO GROWTH IN 1 DAY Resulted 07/29/17 12:25 Wound Foot Gram Stain - Final Resulted 07/29/17 12:25 Wound Culture - Preliminary Proteus Species Gram Positive Cocci Resulted Result Diagram: 07/30/17 0700 07/30/17 0700 Imaging Last 48 hours Impressions Foot X-Ray 07/29/17 1221 Signed Impressions: Service Date/Time: Saturday, July 29, 2017 12:24 - CONCLUSION: 1. No radiographic evidence to clearly suggest osteomyelitis. 2. Old trauma involving the proximal phalanx of the third toe. Kiko Mccarty Jr., MD Abdomen/Pelvis CT 07/29/17 1055 Signed Impressions: Service Date/Time: Saturday, July 29, 2017 11:48 - CONCLUSION: 1. Scattered diverticulosis without diverticulitis. 2. No renal calculi or hydronephrosis. 3. Small hiatal hernia and thickening of the distal because. 4. 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 Clinton Haji MD Foot MRI 07/29/17 0000 Signed Impressions: Service Date/Time: Saturday, July 29, 2017 16:31 - CONCLUSION: 1. Focal abnormal collection of soft tissue along the dorsum of the foot measuring 2.5 x 3.4 cm. This is suggestive of a inflammatory process and/or granulomatous tissue. No loculated fluid collection is seen to indicate an abscess. 2. No evidence of osteomyelitis. Raymond Arroyo MD Assessment and Plan Problem List: (1) CKD (chronic kidney disease) stage 4, GFR 15-29 ml/min ICD Codes: N18.4 - Chronic kidney disease, stage 4 (severe) Plan: Question of acute on chronic renal insufficiency. No previous renal indices available to me currently since 2012. Patient does not know the name of her physician she was in [place]. I asked her to discuss this with her hopefully we can determine the name of the physician so we can obtain additional records. Suspect that she may have a component of acute renal insufficiency related to usage of NSAIDs prior to admission with concurrent infection. She also however does have a history of long-standing apparently poorly controlled diabetes mellitus I would not be surprised if she has chronic kidney disease related to her diabetes and hypertension. Recommend monitoring of vancomycin levels as well as renal indices. I will defer this to primary care physician as far as antibiotic management is concerned however. Serological studies as ordered. Follow-up renal panel. Medications should be adjusted for the patient's estimated GFR if clinically indicated. Avoid agents with significant potential for nephrotoxicity possible including NSAIDs for analgesia, iodine contrast agents. Gadolinium is contraindicated if the GFR is below 30. (2) Diabetic nephropathy associated with type 2 diabetes mellitus ICD Codes: E11.21 - Type 2 diabetes mellitus with diabetic nephropathy Plan: Defer management to primary care physician. (3) Pelvic mass ICD Codes: R19.00 - Intra-abdominal and pelvic swelling, mass and lump, unspecified site Plan: Defer management to primary care physician. (4) Diabetic foot infection ICD Codes: E11.69 - Type 2 diabetes mellitus with other specified complication ; L08.9 - Local infection of the skin and subcutaneous tissue, unspecified Status: Acute Plan: Defer management to primary care physician. Assessment and Plan The patient will be seen intermittently. Please call if any questions. Marcelino Biggs MD Jul 30, 2017 14:42
--- NOTE | 2017-07-30 14:55 | EKG ---
Date Performed: 07/29/2017 Time Performed: 12:04:42 PTAGE: 57 years EKG: SINUS TACHYCARDIA PREVIOUS TRACING : 07/07/2012 18.46 DOCTOR: Silas Dial Interpretating Date/Time 07/30/2017 14:55:12
[2017-07-30] MEDS: PIPERACIL-TAZO 2.25 GM PREMIX 50 ML IV SCH ×2 (15:22→23:07)
[2017-07-30 16:00] VITALS: BP 138/73; PULSE 85; RESP 14; TEMP 97.8; O2SAT 99
[2017-07-30] MEDS: ACETAMINOPHEN 325 MG TAB PO PRN (17:32)
[2017-07-30 20:00] VITALS: BP 140/64; PULSE 88; RESP 22; TEMP 98.7; O2SAT 97
[2017-07-30] MEDS: VANCOMYCIN INJ 1,600 MG in SODIUM CHLORID 0.9% 500 ML INJ 500 ML IV SCH (20:57)
[2017-07-30] MEDS: INSULIN DETEMIR 100 UNITS/ML VIAL SQ SCH (21:00)
[2017-07-31] VITALS: BP 119/64; PULSE 85; RESP 22; TEMP 98.5; O2SAT 96
[2017-07-31] MEDS: PIPERACIL-TAZO 2.25 GM PREMIX 50 ML IV SCH ×5 (03:13→21:01)
[2017-07-31] MEDS ORDERED: LACTATED RINGER'S 1000 ML IV PRN (04:30)
[2017-07-31 05:59] VITALS: BP 122/66; PULSE 82; RESP 20; TEMP 98.4; O2SAT 97
[2017-07-31 06:04] LABS: HEMATOCRIT 30.3 % (35.0-46.0); HEMOGLOBIN 9.8 GM/DL (11.6-15.3); MEAN CELL VOLUME 89.3 FL (80.0-100.0); MEAN CORPUSCULAR HEMOGLOBIN 28.9 PG (27.0-34.0); MEAN CORPUSCULAR HGB CONC 32.3 % (32.0-36.0); MEAN PLATELET VOLUME 7.7 FL (7.0-11.0); PLATELET COUNT 408 TH/MM3 (150-450); RED BLOOD COUNT 3.39 MIL/MM3 (4.00-5.30); RED CELL DISTRIBUTION WIDTH 13.3 % (11.6-17.2); WHITE BLOOD COUNT 10.5 TH/MM3 (4.0-11.0)
[2017-07-31 06:14] LABS: CHLORIDE 104 MEQ/L (98-107); SODIUM (NA) 137 MEQ/L (136-145)
[2017-07-31 06:15] LABS: CALCIUM 8.2 MG/DL (8.5-10.1)
[2017-07-31 06:16] LABS: BICARBONATE 27.7 MEQ/L (21.0-32.0)
[2017-07-31] MEDS ORDERED: NEOMYCIN/POLYMYXIN 1 ML G.U. IRRIGANT ONE (06:18)
[2017-07-31 06:19] LABS: ALBUMIN 1.9 GM/DL (3.4-5.0); BICARBONATE 26.6 MEQ/L (21.0-32.0); CALCIUM 8.2 MG/DL (8.5-10.1); CREATININE 1.8 MG/DL (0.50-1.00); GLUCOSE,RANDOM 197 MG/DL (74-106)
[2017-07-31 06:20] LABS: BLOOD UREA NITROGEN 21 MG/DL (7-18)
[2017-07-31 06:22] LABS: GLOMERULAR FILTRATION RATE 35 ML/MIN (>89)
[2017-07-31 06:23] LABS: PHOSPHORUS 2.9 MG/DL (2.5-4.9)
[2017-07-31] MEDS ORDERED: BUPIVACAINE HCL PF 0.5% 30 ML VIAL ONE (06:33)
[2017-07-31] MEDS ORDERED: MIDAZOLAM HCL 2 MG/2 ML VIAL ONE (06:34)
[2017-07-31 06:35] LABS: LYMPHOCYTES 24 % (9-44); MONOCYTES 4 % (0-8); NEUTROPHIL # MANUAL DIFF 7.2 TH/MM3 (1.8-7.7); POLYS (SEG NEUTROPHILS) 69 % (16-70)
[2017-07-31] MEDS: SODIUM CHLOR 0.9% 1000 ML INJ 1,000 ML IV SCH ×2 (06:40→17:38)
[2017-07-31] MEDS ORDERED: FAMOTIDINE 20 MG/2 ML VIAL ONE (06:41)
--- NOTE | 2017-07-31 07:55 | HHI.PR ---
Immediate Post Op Note Procedure Date: Jul 31, 2017 Pre Op Diagnosis: Ulcers right heel and midfoot Post Op Diagnosis: Same Surgeon: Valerie Martinez DPM [employer] Manager(s): Staff Procedure: Debridement of ulcers right heel and midfoot Findings: Consistent with diagnosis. Ulcer right heel 5cm diameter with fibronecrotic tissue and fat. Liquefactive necrosis present under eschar. Depth is 1cm. No surrounding erythema. Ulcer right plantar midfoot 6.5cm diameter with hypergrannulation tissue. Depth after debridement is 0.4cm. Necrosis not present. No surrounding erythema or purulence present. Adaptic, 4x4, abd, cast padding, ariane applied right foot. Will have to have wound vac applied tomorrow by wound care nurse due to bleeding tissue present today. Nonweightbearing right foot. No further surgery anticipated at this time. Will need wound vac upon discharge set up and possible graft in future. Additional Information: n/a Complications: None Specimen(s) removed: culture right heel Estimated blood loss: 20mL Anesthesia: MAC Drains: None Tourniquet time (min at mmHg) n/a Patient to: PACU Patient Condition: Good Date/Time of Procedure: SEE SURGICAL CARE RECORD Valerie Martinez DPM Jul 31, 2017 07:55
[2017-07-31] MEDS ORDERED: Vancomycin Consult Pharmacy 1 EA OTHER SCH (08:00)
--- NOTE | 2017-07-31 08:47 | MP ---
cc: Valerie Martinez DPTheresa DATE OF OPERATION: 07/31/2017 Patient presented with chronic ulcers to the right heel and mid foot with a Charcot deformity to the right foot with rockerbottom foot. She has undergone extensive wound care unsuccessfully with this area and developed what appeared to be the beginning of an infection and came in, was admitted. After examination, she was found to have ulcerations with hypergranulation tissue to the plantar mid foot and fibronecrotic tissue and eschar to the right heel area. We discussed risks, benefits, potential complications. She agreed to undergo debridement of ulcers right heel and mid foot. She was seen in preop holding by myself, nursing staff and anesthesia where the correct patient, side and site were all confirmed to be correct on the right foot. She was then taken back to the surgical suite in supine position. The right foot was prepped and draped in normal sterile fashion, followed by attention directed to the right heel after timeouts were performed as per facility protocol. Right heel ulceration had fibronecrotic tissue with eschar superficially, was found to have liquefactive necrosis after the eschar was removed sharply with a #15 blade. Excisional debridement was performed with a #15 blade and curette down to healthy bleeding subcutaneous fat and granulation tissue. Upon excisional debridement, the ulcer measured approximately 5 cm in diameter and 1 cm in depth with no surrounding erythema. Culture was taken of the wound as well of the right heel. There was no surrounding erythema or purulence noted after debridement was complete. Attention was then directed to the right plantar mid foot area where there was considerable hypergranulation tissue throughout the base. The ulceration measured approximately 6.5 cm diameter with a hypergranular base, and depth after debridement was approximately 0.4 cm. Necrotic tissue was not present. There was no erythema or purulence noted as well. Excisional debridement was performed with a #15 blade and curette of the area of all hypergranulation tissue and fibrotic tissue down to healthy bleeding subcutaneous tissue. Following this, there was noted to be considerable bleeding at both sites, and a wound VAC was not applied at this time but will be ordered to be placed by the wound care nurse tomorrow. Dressing consisting of Adaptic, 4 x 4's, ABD, cast padding and Chilo was applied to the right foot. Will have wound VAC applied tomorrow by wound care, and she will be nonweightbearing to the right foot. No further surgery is anticipated at this time, and she will need a wound VAC upon discharge. SHORT OPERATIVE NOTE: SURGEON: Valerie Martinez DPM METHODS ENGINEER: Staff. PREOPERATIVE DIAGNOSIS: Ulcers, right heel and mid foot. POSTOPERATIVE DIAGNOSIS: Ulcers, right heel and mid foot. PROCEDURE: Debridement of ulcers, right heel and mid foot. COMPLICATIONS: None. SPECIMEN: Culture, right heel. ESTIMATED BLOOD LOSS: 20 mL. ANESTHESIA: MAC. TOURNIQUET TIME: No tourniquet utilized. CONDITION: Stable to PACU. DISPOSITION: Nonweightbearing right foot. Will need wound VAC upon discharge set up. Wound VAC orders are in the front of the chart. ERI Benavides/MARIANELA , 08:24 AM , 08:46 AM
[2017-07-31 09:15] VITALS: BP 133/68; PULSE 88; RESP 20; TEMP 97; O2SAT 98
[2017-07-31] MEDS: LISINOPRIL 20 MG TAB PO SCH (11:00)
[2017-07-31] MEDS: INSULIN ASPART SUPPLEMENTAL SCALE SQ SCH ×6 (11:00→21:15)
[2017-07-31] MEDS: ATORVASTATIN 20 MG TAB PO SCH (11:00)
[2017-07-31] MEDS: SODIUM CHLORIDE 0.9% FLUSH 10 ML FLUSH IV FLUSH SCH ×2 (11:00→21:00)
[2017-07-31] MEDS: INSULIN DETEMIR 100 UNITS/ML VIAL SQ SCH ×3 (11:00→21:14)
[2017-07-31 11:54] LABS: % SATURATION IRON PROFILE 43.8 % (20-50); IRON (FE) 81 MCG/DL (50-170); TOTAL IRON BINDING CAPACITY 185 MCG/DL (250-450)
[2017-07-31 12:00] VITALS: BP 131/71; PULSE 95; RESP 20; TEMP 97.8; O2SAT 97
[2017-07-31 12:00] LABS: COMPLEMENT C3 128 MG/DL (90-180); COMPLEMENT C4 28 MG/DL (10-40)
--- NOTE | 2017-07-31 15:34 | HHI.PR ---
Subjective Remarks Follow-up uncontrolled diabetes and right infected foot. Patient seen and examined, lying in bed status post I&D of right foot. Surgery progress note appreciated, wound VAC will be applied tomorrow. Patient is still having some bleeding tissue today. Orders for nonweightbearing of her right foot. PT following. Patient's vitals are stable. Afebrile. Eating well denies any abdominal pain, nausea or vomiting. at bedside and updated as well, stating that he wants to provide all care for the patient upon discharge. Objective Vitals Vital Signs Date Time Temp Pulse Resp B/P (MAP) Pulse Ox O2 Delivery O2 Flow Rate FiO2 07/31/17 12:00 97.8 95 20 131/71 (91) 97 07/31/17 09:15 97.0 88 20 133/68 (89) 98 07/31/17 08:25 98.2 87 16 125/56 (79) 97 Room Air 07/31/17 08:10 88 16 129/62 (84) 97 Nasal Cannula 3 07/31/17 07:55 98.8 59 14 132/60 (84) 100 Simple Mask 7 07/31/17 06:38 98.4 82 18 122/66 (84) 97 07/31/17 05:59 98.4 82 20 122/66 (84) 97 07/31/17 00:00 98.5 85 22 119/64 (82) 96 07/30/17 20:00 98.7 88 22 140/64 (89) 97 07/30/17 18:32 18 07/30/17 16:00 97.8 85 14 138/73 (94) 99 I/O 07/30/17 07/30/17 07/30/17 07/31/17 07/31/17 07/31/17 07:00 15:00 23:00 07:00 15:00 23:00 Intake Total 1680 ml 1000 ml 150 ml 1100 ml 900 ml Output Total 1000 ml 500 ml 300 ml 20 ml Balance 680 ml 1000 ml -350 ml 800 ml 880 ml Intake Oral 480 ml 100 ml IV Total 1200 ml 1000 ml 50 ml 1100 ml 900 ml Output Urine Total 1000 ml 500 ml 300 ml Estimated Blood Loss 20 ml # Voids 1 # Bowel Movements 0 1 Result Diagram: 07/31/17 0549 07/31/17 0549 Imaging Last Impressions Foot X-Ray 07/29/17 1221 Signed Impressions: Service Date/Time: Saturday, July 29, 2017 12:24 - CONCLUSION: 1. No radiographic evidence to clearly suggest osteomyelitis. 2. Old trauma involving the proximal phalanx of the third toe. Kiko Mccarty Jr., MD Abdomen/Pelvis CT 07/29/17 1055 Signed Impressions: Service Date/Time: Saturday, July 29, 2017 11:48 - CONCLUSION: 1. Scattered diverticulosis without diverticulitis. 2. No renal calculi or hydronephrosis. 3. Small hiatal hernia and thickening of the distal because. 4. 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 Clinton Haji MD Foot MRI 07/29/17 0000 Signed Impressions: Service Date/Time: Saturday, July 29, 2017 16:31 - CONCLUSION: 1. Focal abnormal collection of soft tissue along the dorsum of the foot measuring 2.5 x 3.4 cm. This is suggestive of a inflammatory process and/or granulomatous tissue. No loculated fluid collection is seen to indicate an abscess. 2. No evidence of osteomyelitis. Raymond Arroyo MD Objective Remarks GENERAL: Well-developed, obese female patient in [facility]. SKIN: Warm and dry. No rash. HEAD: Normocephalic. Atraumatic. EYES: Pupils equal and round. No scleral icterus. No injection or drainage. ENT: No nasal bleeding or discharge. Mucous membranes pink and moist. NECK: Supple. Trachea midline. CARDIOVASCULAR: Regular rate and rhythm. S1, S2 noted. No murmur appreciated. RESPIRATORY: No accessory muscle use. Clear to auscultation. Breath sounds equal bilaterally. GASTROINTESTINAL: Abdomen soft, non-tender, nondistended. Normoactive bowel sounds x4. MUSCULOSKELETAL: Right lower extremity dressing in place to infected wound. Status post I&D. NEUROLOGICAL: Awake and alert. No obvious cranial nerve deficits. Motor grossly within normal limits. 5/5 muscle strength in bilateral upper and lower extremities. Normal speech. PSYCHIATRIC: Appropriate mood and affect; insight and judgment normal. A/P Problem List: (1) Pelvic mass ICD Code: R19.00 - Intra-abdominal and pelvic swelling, mass and lump, unspecified site Plan: Follow clinically (2) Diabetic foot infection ICD Code: E11.69 - Type 2 diabetes mellitus with other specified complication; L08.9 - Local infection of the skin and subcutaneous tissue, unspecified Status: Acute Plan: MRI of the right foot showing no osteomyelitis and no abscess. Continue vancomycin and Zosyn. Consult placed to ID, may need extended antibiotic coverage per podiatry recommendations. Awaiting further recommendations. Status post I&D today. Wound VAC will be placed tomorrow. Possible skin grafting future. With sepsis present on admission, continue IV hydration and follow-up blood cultures. Blood cultures negative to date. (3) Uncontrolled diabetes mellitus ICD Code: E11.65 - Type 2 diabetes mellitus with hyperglycemia Status: Acute Plan: Patient is not sure of her regimen at home other than she takes metformin. We will hold metformin given patient's need for inpatient stay. Continue with insulin per sliding scale plus Levemir and insulin with meals. Increase Levemir twice daily. Increase prandial dose. Follow hemoglobin A1c 16. Start atorvastatin, mild hypertriglyceridemia. Patient education. (4) CKD (chronic kidney disease) stage 3, GFR 30-59 ml/min ICD Code: N18.3 - Chronic kidney disease, stage 3 (moderate) Plan: Patient with nausea and vomiting and hyperkalemia, she may be uremic Hyperkalemia. We will follow with nephrology, appreciate further recommendations. Discharge Planning Wound VAC needs to be placed tomorrow. Case management assisting, difficult discharge due to inability for home health care coverage and minimal coverage with SNF. Izabel Stiles Jul 31, 2017 15:34
[2017-07-31 16:00] VITALS: BP 136/74; PULSE 92; RESP 20; TEMP 97.6; O2SAT 97
[2017-07-31] MEDS: INSULIN HUMAN REGULAR 1,000 UNITS/10 ML VIAL SQ SCH (17:38)
--- NOTE | 2017-07-31 18:30 | PD.CONS ---
History of Present Illness Service ID CONSULT DR CAST Consult Requested By Reason for Consult RIGHT DIABETIC FOOT ULCER CHARCOT FOOT Primary Care Physician Bharathi Miguel M.D. Diagnoses: (1) Diabetic foot infection (2) Uncontrolled diabetes mellitus (3) Diabetic nephropathy associated with type 2 diabetes mellitus History of Present Illness 57 YR OLD FEMALE PRESENTS WITH DECLINING RIGHT FOOT INFECTION WORSENING OVER THE LAST 2MONTHS. SHE HAS HAD A DIABETIC FOOT WOUND OFF /ON TO THE RIGHT FOOT OVER THE PAST 5 YRS. SHE WAS IN [place] AND FOLLOWING WITH WOUND CARE AND HAD THE WOUND NEARLY CLOSED AFTER 10 M AND THEN IT ERUPTED. SHE HAS HAD DECLINE OVER THE PAST 2M. NO FEVER OR CHILLS. SHE HAS A RIGHT CHARCOT FOOT. 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 Review of Systems Constitutional: DENIES: Fever Endocrine: DENIES: Polydipsia Eyes: DENIES: Eye pain Ears, nose, mouth, throat: DENIES: Oral lesions Respiratory: DENIES: Cough, Sputum production Gastrointestinal: DENIES: Diarrhea Genitourinary: DENIES: Sexual dysfunction Musculoskeletal: COMPLAINS OF: Joint Swelling Integumentary: DENIES: Pruritus Hematologic/lymphatic: DENIES: Lymphadenopathy Past Family Social History Allergies: Coded Allergies: Sulfa (Sulfonamide Antibiotics) (Unverified Allergy, Unknown, DIFFICULTY BREATHING, 07/29/17) Past Medical History Past Medical History Hypertension Diabetes mellitus type 2 History of venous thrombo-embolic event Past Surgical History Past Surgical History Right foot, tubal ligation Reported Medications Reported Medications Reviewed in the EMR, no new antibiotics Active Ordered Medications Active Ordered Medications Reviewed in the EMR Family History Allergies: Coded Allergies: Sulfa (Sulfonamide Antibiotics) (Unverified Allergy, Unknown, DIFFICULTY BREATHING, 07/29/17) Family History Mother and father had diabetes, brother has diabetes, sisters alive and well Social History NON SMOKER NO ETOH NO DRUG USE RETIRED NURSE FROM [place] Physical Exam Vital Signs Vital Signs Date Time Temp Pulse Resp B/P (MAP) Pulse Ox O2 Delivery O2 Flow Rate FiO2 07/31/17 16:00 97.6 92 20 136/74 (94) 97 07/31/17 12:00 97.8 95 20 131/71 (91) 97 07/31/17 09:15 97.0 88 20 133/68 (89) 98 07/31/17 08:25 98.2 87 16 125/56 (79) 97 Room Air 3/8/18 08:10 88 16 129/62 (84) 97 Nasal Cannula 3 07/31/17 07:55 98.8 59 14 132/60 (84) 100 Simple Mask 7 07/31/17 06:38 98.4 82 18 122/66 (84) 97 07/31/17 05:59 98.4 82 20 122/66 (84) 97 07/31/17 00:00 98.5 85 22 119/64 (82) 96 07/30/17 20:00 98.7 88 22 140/64 (89) 97 07/30/17 18:32 18 Physical Exam GENERAL: This is a OBESE CHRONICALLY ILL patient, in no apparent distress. SKIN: No rashes, ecchymoses or lesions. Cool and dry. HEAD: Atraumatic. Normocephalic. No temporal or scalp tenderness. EYES: Pupils equal round and reactive. Extraocular motions intact. No scleral icterus. No injection or drainage. ENT: Nose without bleeding, purulent drainage or septal hematoma. Throat without erythema, tonsillar hypertrophy or exudate. Uvula midline. Airway patent. NECK: Trachea midline. No JVD or lymphadenopathy. Supple, nontender, no meningeal signs. CARDIOVASCULAR: Regular rate and rhythm without murmurs, gallops, or rubs. RESPIRATORY: Clear to auscultation. Breath sounds equal bilaterally. No wheezes , rales, or rhonchi. GASTROINTESTINAL: Abdomen soft, non-tender, nondistended. No hepato-splenomegaly , or palpable masses. No guarding. MUSCULOSKELETAL: Extremities without clubbing, cyanosis, or edema. RIGTH FOOT SURGICAL DRSG NEUROLOGICAL: Awake and alert. Cranial nerves II through XII intact. Laboratory Laboratory Tests Test 07/30/17 23:50 07/31/17 05:49 Urine Eosinophils NONE SEEN White Blood Count 10.5 Red Blood Count 3.39 Hemoglobin 9.8 Hematocrit 30.3 Mean Corpuscular Volume 89.3 Mean Corpuscular Hemoglobin 28.9 Mean Corpuscular Hemoglobin Concent 32.3 Red Cell Distribution Width 13.3 Platelet Count 408 Mean Platelet Volume 7.7 CBC Comment AUTO DIFF Differential Total Cells Counted 100 Neutrophils % (Manual) 69 Lymphocytes % 24 Monocytes % 4 Eosinophils % 3 Neutrophils # (Manual) 7.2 Differential Comment FINAL DIFF MANUAL Platelet Estimate NORMAL Platelet Morphology Comment NORMAL Red Cell Morphology Comment NORMAL Blood Urea Nitrogen 21 Creatinine 1.80 Random Glucose 196 Calcium Level 8.2 Sodium Level 138 Potassium Level 4.1 Chloride Level 104 Carbon Dioxide Level 27.7 Albumin 1.9 Phosphorus Level 2.9 Anion Gap 6 Estimat Glomerular Filtration Rate 35 Iron Level 81 Total Iron Binding Capacity 185 Percent Iron Saturation 43.8 Total Protein 7.3 Parathyroid Hormone (Intact) 119.1 Complement C3 128 Complement C4 28 Hepatitis B Surface Antigen NEGATIVE Hepatitis C Antibody NEGATIVE Date/Time Source Procedure Growth Status 07/29/17 15:50 Blood Peripheral Aerobic Blood Culture - Preliminary NO GROWTH IN 2 DAYS Resulted 07/29/17 15:50 Blood Peripheral Anaerobic Blood Culture - Preliminary NO GROWTH IN 2 DAYS Resulted 07/31/17 07:45 Wound Heel Fungal Smear - Final NO FUNGAL ELEMENTS SEEN. Resulted 07/31/17 07:45 Wound Heel Fungal Culture Pending Resulted Result Diagram: 07/31/1749 07/31/1749 Assessment and Plan Problem List: (1) Uncontrolled diabetes mellitus ICD Codes: E11.65 - Type 2 diabetes mellitus with hyperglycemia Status: Acute (2) Diabetic foot infection ICD Codes: E11.69 - Type 2 diabetes mellitus with other specified complication ; L08.9 - Local infection of the skin and subcutaneous tissue, unspecified Status: Acute Plan: RIGHT DIABETIC FOOT WOUND S/P DEBRIDEMENT CONTINUE ZOSYN/ VANCOMCYIN WILL NEED IV ABX ON DC WILL FU (3) Diabetic nephropathy associated with type 2 diabetes mellitus ICD Codes: E11.21 - Type 2 diabetes mellitus with diabetic nephropathy Problem Qualifiers (1) Uncontrolled diabetes mellitus: Cassie Pickett Jul 31, 2017 18:30
[2017-07-31 20:00] VITALS: BP 116/58; PULSE 90; RESP 22; TEMP 96.7; O2SAT 98
[2017-07-31] MEDS: VANCOMYCIN INJ 1,600 MG in SODIUM CHLORID 0.9% 500 ML INJ 500 ML IV SCH (21:01)
[2017-08-01] VITALS: BP 114/57; PULSE 84; RESP 22; TEMP 97.8; O2SAT 100
[2017-08-01] MEDS: PIPERACIL-TAZO 2.25 GM PREMIX 50 ML IV SCH ×3 (03:03→16:10)
[2017-08-01] MEDS: ACETAMINOPHEN 325 MG TAB PO PRN ×2 (05:05→08:16)
[2017-08-01] MEDS: SODIUM CHLOR 0.9% 1000 ML INJ 1,000 ML IV SCH ×2 (05:05→20:26)
[2017-08-01 08:00] VITALS: BP 121/62; PULSE 85; RESP 19; TEMP 97.2; O2SAT 95
[2017-08-01] MEDS ORDERED: HYDROmorphone HCL PF 2 MG/ML VIAL IV PUSH PRN (08:15)
[2017-08-01] MEDS: ATORVASTATIN 20 MG TAB PO SCH (08:16)
[2017-08-01] MEDS: INSULIN ASPART SUPPLEMENTAL SCALE SQ SCH ×4 (08:17→21:17)
[2017-08-01] MEDS: LISINOPRIL 20 MG TAB PO SCH (08:17)
[2017-08-01] MEDS: INSULIN HUMAN REGULAR 1,000 UNITS/10 ML VIAL SQ SCH ×3 (08:18→17:05)
[2017-08-01] MEDS: INSULIN DETEMIR 100 UNITS/ML VIAL SQ SCH ×2 (08:18→21:17)
[2017-08-01] MEDS: SODIUM CHLORIDE 0.9% FLUSH 10 ML FLUSH IV FLUSH SCH ×2 (08:18→20:55)
--- NOTE | 2017-08-01 09:30 | PD.WCN.NOT ---
Neg Pressure Wound Therapy Wound Location Wound Location: Right Plantar and Right Calcaneus Wound Description Length: R plantar 7.1cm Calcaneus 4.6cm Width: Plantar 5.8cm Calcaneus 4.2cm Depth: Plantar 0.4cm Calcaneus 0.5cm Undermining: none Tunneling: none Wound bed appearance: Plantar ~80% red beefy non granular tissue ~20% pink tissue.Calcaneus 100% beefy red non granular tissue Periwound appearance: Unremarkable Settings Suction: 125 mmHg, Continuous Intensity: Low Other Information: Bridged, Windowpaned, Mushroomed Foam type: Black Number of pieces: 3 Additonal Information Patient was seen on 3rd floor [facility] by functional tester typewriters for wound Vac placement.Dressing removed from R lower extremity without difficulty wounds cleansed with normal saline pat dry measurements obtained and documented.Skin prep applied to periwounds and bridging area.Wounds then windowpaned with drape for protection and draping applied to bridging area.Single piece of black sponge applied to each wound base making contact with all open areas.Bridge sponge applied to plantar and calcaneus wound sponges and bridged to medial tibial area.track pad applied suction started at 125mmHg low continuous suction with no leaks noted.Chilo wrap applied to R lower extremity to secure Vac dressing.Patient was premedicated prior to writers arrival.Tolerated wound care well no discomfort noted. Melinda Harris KEVIN Aug 01, 2017 09:30
--- NOTE | 2017-08-01 10:45 | HHI.PR ---
Subjective Remarks Follow-up uncontrolled diabetes and right infected foot. Patient status post I& D and wound VAC placement today. Patient seen and examined, lying in bed comfortably. Pain is well controlled. Denies any acute events. Eating well, drinking well. Patient tolerated wound VAC placed this morning. Objective Vitals Vital Signs Date Time Temp Pulse Resp B/P (MAP) Pulse Ox O2 Delivery O2 Flow Rate FiO2 08/01/17 08:00 97.2 85 19 121/62 (81) 95 08/01/17 00:00 97.8 84 22 114/57 (76) 100 07/31/17 20:00 96.7 90 22 116/58 (77) 98 07/31/17 16:00 97.6 92 20 136/74 (94) 97 07/31/17 12:00 97.8 95 20 131/71 (91) 97 I/O 07/31/17 07/31/17 07/31/17 08/01/17 08/01/17 08/01/17 07:00 15:00 23:00 07:00 15:00 23:00 Intake Total 1100 ml 1352 ml 2 ml 1400 ml 120 ml Output Total 300 ml 20 ml Balance 800 ml 1332 ml 2 ml 1400 ml 120 ml Intake Oral 450 ml 1400 ml 120 ml IV Total 1100 ml 902 ml 2 ml Output Urine Total 300 ml Estimated Blood Loss 20 ml # Voids 1 1 4 # Bowel Movements 1 0 3 Result Diagram: 07/31/17 0549 07/31/17 0549 Imaging Last Impressions Foot X-Ray 07/29/17 1221 Signed Impressions: Service Date/Time: Saturday, July 29, 2017 12:24 - CONCLUSION: 1. No radiographic evidence to clearly suggest osteomyelitis. 2. Old trauma involving the proximal phalanx of the third toe. Kiko Mccarty Jr., MD Abdomen/Pelvis CT 07/29/17 1055 Signed Impressions: Service Date/Time: Saturday, July 29, 2017 11:48 - CONCLUSION: 1. Scattered diverticulosis without diverticulitis. 2. No renal calculi or hydronephrosis. 3. Small hiatal hernia and thickening of the distal because. 4. 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 Clinton Haji MD Foot MRI 07/29/17 0000 Signed Impressions: Service Date/Time: Saturday, July 29, 2017 16:31 - CONCLUSION: 1. Focal abnormal collection of soft tissue along the dorsum of the foot measuring 2.5 x 3.4 cm. This is suggestive of a inflammatory process and/or granulomatous tissue. No loculated fluid collection is seen to indicate an abscess. 2. No evidence of osteomyelitis. Raymond Arroyo MD Objective Remarks GENERAL: Well-developed, obese female patient in [facility]. SKIN: Warm and dry. No rash. HEAD: Normocephalic. Atraumatic. EYES: Pupils equal and round. No scleral icterus. No injection or drainage. ENT: No nasal bleeding or discharge. Mucous membranes pink and moist. NECK: Supple. Trachea midline. CARDIOVASCULAR: Regular rate and rhythm. S1, S2 noted. No murmur appreciated. RESPIRATORY: No accessory muscle use. Clear to auscultation. Breath sounds equal bilaterally. GASTROINTESTINAL: Abdomen soft, non-tender, nondistended. Normoactive bowel sounds x4. MUSCULOSKELETAL: Right lower extremity dressing in place to infected wound. Status post I&D. NEUROLOGICAL: Awake and alert. No obvious cranial nerve deficits. Motor grossly within normal limits. 5/5 muscle strength in bilateral upper and lower extremities. Normal speech. PSYCHIATRIC: Appropriate mood and affect; insight and judgment normal. A/P Problem List: (1) Pelvic mass ICD Code: R19.00 - Intra-abdominal and pelvic swelling, mass and lump, unspecified site Plan: Follow clinically (2) Diabetic foot infection ICD Code: E11.69 - Type 2 diabetes mellitus with other specified complication; L08.9 - Local infection of the skin and subcutaneous tissue, unspecified Status: Acute Plan: MRI of the right foot showing no osteomyelitis and no abscess. Continue vancomycin and Zosyn. Consult placed to ID, may need extended antibiotic coverage per podiatry recommendations. Awaiting further recommendations. Status post I&D 07/31/17, wound VAC placed today. Possible skin grafting in the future. With sepsis present on admission, continue IV hydration and follow-up blood cultures. Blood cultures negative to date. Repeat wound culture pending, follow. (3) Uncontrolled diabetes mellitus ICD Code: E11.65 - Type 2 diabetes mellitus with hyperglycemia Status: Acute Plan: Patient is not sure of her regimen at home other than she takes metformin. We will hold metformin given patient's need for inpatient stay. Continue with insulin per sliding scale plus Levemir and insulin with meals. Increase Levemir twice daily. Increase prandial dose. Follow hemoglobin A1c 16. Start atorvastatin, mild hypertriglyceridemia. Patient education. (4) CKD (chronic kidney disease) stage 3, GFR 30-59 ml/min ICD Code: N18.3 - Chronic kidney disease, stage 3 (moderate) Plan: We will follow with nephrology, appreciate further recommendations. Avoid nephrotoxins. Creatinine 1.8 today from 2.3. Follow. Discharge Planning Case management assisting, difficult discharge due to inability for home health care coverage and minimal coverage with SNF. Plan is for to undergo education for wound VAC change and placement so that he can manage at home. He is willing and able. When wound VAC is delivered, wound cultures have resulted and final recommendations for antibiotics from ID are clear for discharge and arranged, patient can discharged. Problem Qualifiers (1) Uncontrolled diabetes mellitus: Izabel Stiles Aug 01, 2017 10:45
[2017-08-01] MEDS ORDERED: GETGO ROLLING W1 MI1 (11:14)
[2017-08-01 11:20] VITALS: BP 99/44; PULSE 80; RESP 20; TEMP 97.8; O2SAT 97
--- NOTE | 2017-08-01 14:57 | HHI.NPPN ---
Subjective History of Present Illness This patient is a 57-year-old Afro-[place] female with a history of long- standing diabetes mellitus and hypertension and from the records I reviewed some noncompliance with medical care. She was previously hospitalized at this institution back in October 2012. At that time she was admitted with a left lower extremity diabetic wounds and was noted to have acute renal insufficiency. She subsequently left the hospital AM. On October 24, 2012 her creatinine level was noted to be 2.09. She subsequently was admitted to [facility] and her creatinine level improved at time of discharge 0.6. Appears that the patient went up north to [place]. Patient is a very poor historian when it comes to details regarding her previous medical history. She cannot indicates to me what continuity of care she had out of state or the name of the physician that she was seeing a when her last bar to study was done prior to this admission. Subsequently admitted to this institution with a history of nausea and vomiting. Noted to have significant hyperglycemia. Creatinine level on presentation was elevated and is currently 2.3 at time of consultation with an estimated GFR of 26. Also anemic with a hemoglobin of 9.8. Patient indicates that she was using Aleve twice daily for about 7 days prior to presentation. CT scan indicated the presence of a large pelvic mass but nothing significant reported as far as her kidneys were concerned i.e. no hydronephrosis. Also on presentation patient noted to have diabetic ulcer lower extremity with drainage. Interval History Pt feeling better Appetite improved No new complaints Objective Data Data 08/01/17 08/02/17 19:00 07:00 Intake Total 120 ml Balance 120 ml Intake Oral 120 ml Vital Signs Date Time Temp Pulse Resp B/P (MAP) Pulse Ox O2 Delivery O2 Flow Rate FiO2 08/01/17 11:20 97.8 80 20 99/44 (62) 97 08/01/17 08:00 97.2 85 19 121/62 (81) 95 08/01/17 00:00 97.8 84 22 114/57 (76) 100 07/31/17 20:00 96.7 90 22 116/58 (77) 98 07/31/17 16:00 97.6 92 20 136/74 (94) 97 -: 07/31/17 0549 07/31/17 0549 Imaging Last Impressions Foot X-Ray 07/29/17 1221 Signed Impressions: Service Date/Time: Saturday, July 29, 2017 12:24 - CONCLUSION: 1. No radiographic evidence to clearly suggest osteomyelitis. 2. Old trauma involving the proximal phalanx of the third toe. Kiko Mccarty Jr., MD Abdomen/Pelvis CT 07/29/17 1055 Signed Impressions: Service Date/Time: Saturday, July 29, 2017 11:48 - CONCLUSION: 1. Scattered diverticulosis without diverticulitis. 2. No renal calculi or hydronephrosis. 3. Small hiatal hernia and thickening of the distal because. 4. 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 Clinton Haji MD Foot MRI 07/29/17 0000 Signed Impressions: Service Date/Time: Saturday, July 29, 2017 16:31 - CONCLUSION: 1. Focal abnormal collection of soft tissue along the dorsum of the foot measuring 2.5 x 3.4 cm. This is suggestive of a inflammatory process and/or granulomatous tissue. No loculated fluid collection is seen to indicate an abscess. 2. No evidence of osteomyelitis. Raymond Arroyo MD Medication Review Current Medications Medications (Trade) Dose Ordered Sig/Iraj Route Start Time Stop Time Status Last Admin Sodium Chloride 1,000 ml @ 100 mls/hr Q10H IV 07/29/17 14:37 08/01/17 05:05 (NS Flush) 2 ml UNSCH PRN IV FLUSH 07/29/17 14:45 (NS Flush) 2 ml BID IV FLUSH 07/29/17 21:00 07/31/17 11:00 (Tylenol) 650 mg Q4H PRN PO 07/29/17 14:45 08/01/17 08:16 (Zofran Inj) 4 mg Q6H PRN IVP 07/29/17 14:45 (Narcan Inj) 0.4 mg UNSCH PRN IV PUSH 07/29/17 14:45 (Senokot) 17.2 mg Q12H PRN PO 07/29/17 14:45 (D50w (Vial) Inj) 50 ml UNSCH PRN IV PUSH 07/29/17 14:45 (Glucagon Inj) 1 mg UNSCH PRN OTHER 07/29/17 14:45 (NovoLOG SUPPLEMENTAL SCALE) 1 ACHS SLIDING SCALE SQ 07/29/17 17:00 08/01/17 12:34 (Prinivil) 40 mg DAILY PO 07/30/17 09:00 08/01/17 08:17 Pharmacy Profile Note 0 ml @ 0 mls/hr UNSCH OTHER 07/29/17 14:45 (Heparin Inj) 5,000 units Q12HR SQ 07/29/17 21:00 Future Hold 07/30/17 22:07 Vancomycin HCl 1600 mg/Sodium Chloride 516 ml @ 250 mls/hr DAILY@2000 IV 07/30/17 20:00 07/31/17 21:01 Miscellaneous Information SPECIFIC LAB TO BE DRAWN:VANCO TROUGH DATE... ONCE ONCE .XX 08/01/17 19:45 08/01/17 19:46 Piperacillin Sod/ Tazobactam Sod 50 ml @ 100 mls/hr Q6H IV 07/30/17 15:00 08/01/17 08:15 (Lipitor) 20 mg DAILY PO 07/31/17 09:00 08/01/17 08:16 Lactated Ringer's 1,000 ml @ 30 mls/hr Q24H PRN IV 07/31/17 04:30 08/03/17 04:29 (Dilaudid Pf Inj) 1 mg UNSCH X1 PRN IV PUSH 08/01/17 08:15 08/01/17 23:59 (Levemir Inj) 15 units BID SQ 08/01/17 21:00 (NovoLIN R INJ) 10 units TIDPC SQ 08/01/17 13:30 08/01/17 12:33 (Albuterol Neb) 2.5 mg Q4HR NEB NEB 08/01/17 16:00 (Symbicort 160-4.5 Mcg Inh) 2 puff Q12HR INH 08/01/17 14:30 Physical Exam General Appearance: Well Developed, Well Nourished, No Acute Distress, Comfortable Throat Throat Exam: Oral Mucosa [place] & Moist Neck Neck Exam: Neck Supple, Trachea Midline Pulmonary Resp Exam: Clear Bilaterally, Breath Sounds Equal, No Distress Cardiology CV Exam: Regular, Normal Sinus Rhythm Gastrointestinal/Abdomen GI Exam: Soft, Non-Tender Integumentary Skin Exam: Clear, Warm Extremeties Extremities Exam: No Edema Neurologic Neuro Exam: Alert, Awake Psychiatric Psych Exam: Appropriate Responses Assessment/Plan Problem List: (1) CKD (chronic kidney disease) stage 4, GFR 15-29 ml/min ICD Codes: N18.4 - Chronic kidney disease, stage 4 (severe) Plan: Renal functions stable. This may be her baseline. Says she is still not sure the name of her PCP from [place] to get records. Underlying CKD related to diabetic nephropathy and hypertensive nephrosclerosis. Acute decline likely related to NSAID use prior to her admission as well as infectious process. To continue on hydration. Hold Lisinopril given ERI and relative low BP. May need Amlodipine if BP should rise. Will continue to monitor in the periphery. Please call with any questions. Medications should be adjusted for the patient's estimated GFR if clinically indicated. Avoid agents with significant potential for nephrotoxicity possible including NSAIDs for analgesia, iodine contrast agents. Gadolinium is contraindicated if the GFR is below 30. (2) Diabetic nephropathy associated with type 2 diabetes mellitus ICD Codes: E11.21 - Type 2 diabetes mellitus with diabetic nephropathy Plan: Defer management to primary care physician. (3) Pelvic mass ICD Codes: R19.00 - Intra-abdominal and pelvic swelling, mass and lump, unspecified site Plan: Defer management to primary care physician. (4) Diabetic foot infection ICD Codes: E11.69 - Type 2 diabetes mellitus with other specified complication ; L08.9 - Local infection of the skin and subcutaneous tissue, unspecified Status: Acute Plan: Defer management to primary care physician. Ordered random [facility] Marisela Maldonado Aug 01, 2017 14:57
[2017-08-01] MEDS: BUDESONIDE-FORMOTEROL 160/4.5 MCG INHALER INH SCH ×2 (15:34→20:55)
[2017-08-01] MEDS: RESP: ALBUTEROL 2.5 MG/3 ML NEB (SCH) NEB ×2 (15:59→20:28)
[2017-08-01 16:00] VITALS: BP 126/60; PULSE 84; RESP 15; TEMP 97.1; O2SAT 100
[2017-08-01] MEDS ORDERED: RESP: ALBUTEROL 2.5 MG/3 ML NEB (SCH) NEB (16:00)
--- NOTE | 2017-08-01 16:10 | HHI.IDPN ---
Subjective Subjective Remarks Feels alright No fevers Has a wound vac on foot Antibiotics Vancomycin and Zosyn Lines Peripheral IV line Past Medical History DM Allergies: Coded Allergies: Sulfa (Sulfonamide Antibiotics) (Unverified Allergy, Unknown, DIFFICULTY BREATHING, 07/29/17) Review of Systems Constitutional Constitutional Remarks No fever Objective . Vital Signs Date Time Temp Pulse Resp B/P (MAP) Pulse Ox O2 Delivery O2 Flow Rate FiO2 08/01/17 11:20 97.8 80 20 99/44 (62) 97 08/01/17 08:00 97.2 85 19 121/62 (81) 95 08/01/17 00:00 97.8 84 22 114/57 (76) 100 07/31/17 20:00 96.7 90 22 116/58 (77) 98 08/01/17 08/01/17 08/02/17 15:00 23:00 07:00 Intake Total 120 ml Balance 120 ml Intake Oral 120 ml . Laboratory Tests Test 07/31/17 05:49 White Blood Count 10.5 TH/MM3 Red Blood Count 3.39 MIL/MM3 Hemoglobin 9.8 GM/DL Hematocrit 30.3 % Mean Corpuscular Volume 89.3 FL Mean Corpuscular Hemoglobin 28.9 PG Mean Corpuscular Hemoglobin Concent 32.3 % Red Cell Distribution Width 13.3 % Platelet Count 408 TH/MM3 Mean Platelet Volume 7.7 FL CBC Comment AUTO DIFF Differential Total Cells Counted 100 Neutrophils % (Manual) 69 % Lymphocytes % 24 % Monocytes % 4 % Eosinophils % 3 % Neutrophils # (Manual) 7.2 TH/MM3 Differential Comment FINAL DIFF MANUAL Platelet Estimate NORMAL Platelet Morphology Comment NORMAL Red Cell Morphology Comment NORMAL Laboratory Tests Test 07/31/17 05:49 Blood Urea Nitrogen 21 MG/DL Creatinine 1.80 MG/DL Random Glucose 196 MG/DL Calcium Level 8.2 MG/DL Sodium Level 138 MEQ/L Potassium Level 4.1 MEQ/L Chloride Level 104 MEQ/L Carbon Dioxide Level 27.7 MEQ/L Albumin 1.9 GM/DL Phosphorus Level 2.9 MG/DL Anion Gap 6 MEQ/L Estimat Glomerular Filtration Rate 35 ML/MIN Iron Level 81 MCG/DL Total Iron Binding Capacity 185 MCG/DL Percent Iron Saturation 43.8 % Total Protein 7.3 GM/DL 25-Hydroxy Vitamin D Total 15.7 ng/ML Parathyroid Hormone (Intact) 119.1 PG/ML Microbiology Date/Time Source Procedure Growth Status 07/31/17 07:45 Wound Heel Fungal Smear - Final NO FUNGAL ELEMENTS SEEN. Resulted 07/31/17 07:45 Wound Heel Fungal Culture Pending Resulted 3 07:45 Wound Heel Acid Fast Stain - Final NO ACID FAST BACILLI SEEN Resulted 3 07:45 Wound Heel Mycobacterial Culture Pending Resulted 3 07:45 Wound Heel Gram Stain - Final Resulted 07/31/17 07:45 Wound Heel Wound Culture - Preliminary Resulted Physical Exam GENERAL: This is a pleasant obese female SKIN: Has a wound vac on right foot. HEAD: Atraumatic. Normocephalic. No temporal or scalp tenderness. EYES: Pupils equal round and reactive. Extraocular motions intact. No scleral icterus. No injection or drainage. ENT: Nose without bleeding, purulent drainage or septal hematoma. Throat without erythema, tonsillar hypertrophy or exudate. Uvula midline. Airway patent. NECK: Trachea midline. No JVD or lymphadenopathy. Supple, nontender, no meningeal signs. CARDIOVASCULAR: Regular rate and rhythm without murmurs, gallops, or rubs. RESPIRATORY: Clear to auscultation. Breath sounds equal bilaterally. No wheezes , rales, or rhonchi. GASTROINTESTINAL: Abdomen soft, non-tender, nondistended. No hepato-splenomegaly , or palpable masses. No guarding. MUSCULOSKELETAL: Right foot with wound vac. NEUROLOGICAL: Awake and alert. Cranial nerves II through XII intact. Peripheral neuropathy Assessment & Plan Diagnosis: (1) Diabetic nephropathy associated with type 2 diabetes mellitus ICD Codes: E11.21 - Type 2 diabetes mellitus with diabetic nephropathy (2) Diabetic foot infection ICD Codes: E11.69 - Type 2 diabetes mellitus with other specified complication ; L08.9 - Local infection of the skin and subcutaneous tissue, unspecified Status: Acute Plan: S/p debridement Stop IV Vancomycin Continue Zosyn Start Daptomycin 4 mg /kg daily Aaliyah Winslow MD Aug 01, 2017 16:10
[2017-08-01] MEDS ORDERED: PIPERACIL-TAZO 3.375 GM PREMIX 50 ML IV SCH (17:00)
[2017-08-01] MEDS ORDERED: CEFTAROLINE INJ 400 MG in SODIUM CHLORIDE 0.9% INJ 100 ML IV SCH (18:00)
[2017-08-01] MEDS: DAPTOmycin INJ 500 MG in SODIUM CHLORIDE 0.9% INJ 100 ML IV SCH (18:04)
[2017-08-01 19:37] LABS: HEMATOCRIT 25.6 % (35.0-46.0); HEMOGLOBIN 8.1 GM/DL (11.6-15.3); MEAN CELL VOLUME 89.3 FL (80.0-100.0); MEAN CORPUSCULAR HEMOGLOBIN 28.3 PG (27.0-34.0); MEAN CORPUSCULAR HGB CONC 31.6 % (32.0-36.0); MEAN PLATELET VOLUME 7.7 FL (7.0-11.0); PLATELET COUNT 343 TH/MM3 (150-450); RED BLOOD COUNT 2.87 MIL/MM3 (4.00-5.30); RED CELL DISTRIBUTION WIDTH 13.2 % (11.6-17.2); WHITE BLOOD COUNT 9.5 TH/MM3 (4.0-11.0)
[2017-08-01] MEDS ORDERED: PHARMACY ORDERED LAB ONE (19:45)
[2017-08-01 20:00] VITALS: BP 159/70; PULSE 97; RESP 20; TEMP 98.7; O2SAT 100
[2017-08-01 20:30] VITALS: O2SAT 98
[2017-08-01 21:40] LABS: RANDOM VANCOMYCIN 25.9 COMMENT
[2017-08-01 22:21] LABS: ALB/GLOB RATIO (SPE) 0.47 (1.39-2.23)
[2017-08-02] VITALS (7 sets, daily range): BP systolic 119–144; BP diastolic 59–76; PULSE 81–98; RESP 18–20; TEMP 97.1–98.8; O2SAT 98–100
[2017-08-02] MEDS: PIPERACIL-TAZO 3.375 GM PREMIX 50 ML IV SCH ×3 (00:35→15:08)
[2017-08-02] MEDS: SODIUM CHLOR 0.9% 1000 ML INJ 1,000 ML IV SCH ×3 (06:42→17:06)
[2017-08-02] MEDS: BUDESONIDE-FORMOTEROL 160/4.5 MCG INHALER INH SCH ×2 (07:34→20:26)
[2017-08-02] MEDS: SODIUM CHLORIDE 0.9% FLUSH 10 ML FLUSH IV FLUSH SCH ×2 (07:37→20:26)
[2017-08-02] MEDS: INSULIN DETEMIR 100 UNITS/ML VIAL SQ SCH ×2 (08:00→20:26)
[2017-08-02] MEDS: INSULIN HUMAN REGULAR 1,000 UNITS/10 ML VIAL SQ SCH ×3 (08:00→17:00)
[2017-08-02] MEDS: INSULIN ASPART SUPPLEMENTAL SCALE SQ SCH ×4 (08:00→20:27)
[2017-08-02] MEDS: RESP: ALBUTEROL 2.5 MG/3 ML NEB (SCH) NEB ×4 (08:36→20:11)
[2017-08-02 10:05] LABS: CALCIUM 8.1 MG/DL (8.5-10.1)
[2017-08-02 10:23] LABS: BICARBONATE 22.4 MEQ/L (21.0-32.0); CREATININE 2.5 MG/DL (0.50-1.00); PHOSPHORUS 3.7 MG/DL (2.5-4.9)
--- NOTE | 2017-08-02 10:35 | HHI.PR ---
Subjective Remarks Follow-up uncontrolled diabetes and right infected foot. Patient with continued wound VAC to right foot. Denies any acute events overnight. Sitting comfortably in bed. Spoke extensively to and patient regarding treatment plan and need for outpatient IV antibiotics. at bedside performing wound VAC change, will do an additional change tomorrow with nursing for competency. Awaiting infectious disease referral for outpatient IV antibiotics. Attempting to contact nephrology for clearance of PICC line placement. Objective Vitals Vital Signs Date Time Temp Pulse Resp B/P (MAP) Pulse Ox O2 Delivery O2 Flow Rate FiO2 08/02/17 08:36 99 08/02/17 08:00 98.2 81 18 137/72 (93) 98 08/02/17 00:00 98.8 98 20 119/59 (79) 99 08/01/17 20:30 98 21 08/01/17 20:00 98.7 97 20 159/70 (99) 100 08/01/17 16:00 97.1 84 15 126/60 (82) 100 08/01/17 11:20 97.8 80 20 99/44 (62) 97 I/O 08/01/17 08/01/17 08/01/17 08/02/17 08/02/17 08/02/17 07:00 15:00 23:00 07:00 15:00 23:00 Intake Total 1400 ml 120 ml 1050 ml 1290 ml Balance 1400 ml 120 ml 1050 ml 1290 ml Intake Oral 1400 ml 120 ml 240 ml IV Total 1050 ml 1050 ml # Voids 4 2 # Bowel Movements 3 2 Result Diagram: 08/01/17 1900 08/02/17 0913 Imaging Last Impressions Foot X-Ray 07/29/17 1221 Signed Impressions: Service Date/Time: Saturday, July 29, 2017 12:24 - CONCLUSION: 1. No radiographic evidence to clearly suggest osteomyelitis. 2. Old trauma involving the proximal phalanx of the third toe. Kiko Mccarty Jr., MD Abdomen/Pelvis CT 07/29/17 1055 Signed Impressions: Service Date/Time: Saturday, July 29, 2017 11:48 - CONCLUSION: 1. Scattered diverticulosis without diverticulitis. 2. No renal calculi or hydronephrosis. 3. Small hiatal hernia and thickening of the distal because. 4. 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 Clinton Haji MD Foot MRI 07/29/17 0000 Signed Impressions: Service Date/Time: Saturday, July 29, 2017 16:31 - CONCLUSION: 1. Focal abnormal collection of soft tissue along the dorsum of the foot measuring 2.5 x 3.4 cm. This is suggestive of a inflammatory process and/or granulomatous tissue. No loculated fluid collection is seen to indicate an abscess. 2. No evidence of osteomyelitis. Raymond Arroyo MD Objective Remarks GENERAL: Well-developed, obese female patient in NAD. SKIN: Warm and dry. No rash. HEAD: Normocephalic. Atraumatic. EYES: Pupils equal and round. No scleral icterus. No injection or drainage. ENT: No nasal bleeding or discharge. Mucous membranes pink and moist. NECK: Supple. Trachea midline. CARDIOVASCULAR: Regular rate and rhythm. S1, S2 noted. No murmur appreciated. RESPIRATORY: No accessory muscle use. Clear to auscultation. Breath sounds equal bilaterally. GASTROINTESTINAL: Abdomen soft, non-tender, nondistended. Normoactive bowel sounds x4. MUSCULOSKELETAL: Right lower extremity dressing in place to infected wound. Status post I&D. NEUROLOGICAL: Awake and alert. No obvious cranial nerve deficits. Motor grossly within normal limits. 5/5 muscle strength in bilateral upper and lower extremities. Normal speech. PSYCHIATRIC: Appropriate mood and affect; insight and judgment normal. A/P Problem List: (1) Pelvic mass ICD Code: R19.00 - Intra-abdominal and pelvic swelling, mass and lump, unspecified site Plan: Follow clinically (2) Diabetic foot infection ICD Code: E11.69 - Type 2 diabetes mellitus with other specified complication; L08.9 - Local infection of the skin and subcutaneous tissue, unspecified Status: Acute Plan: MRI of the right foot showing no osteomyelitis and no abscess. Continue Zosyn, infectious disease started on daptomycin. Consult placed to ID, may need extended antibiotic coverage per podiatry recommendations. Awaiting infectious disease referral for outpatient antibiotics. Status post I&D 07/31/17, wound VAC placed. Possible skin grafting in the future. Management of wound VAC will be per at home, supplies delivered in in room. With sepsis present on admission, continue IV hydration and follow-up blood cultures. Blood cultures negative to date. Repeat wound culture pending, follow. Spoke to Nephrology who does not prefer patient to have midline nor PICC placement. Opt for Young placement via IR. (3) Uncontrolled diabetes mellitus ICD Code: E11.65 - Type 2 diabetes mellitus with hyperglycemia Status: Acute Plan: Patient is not sure of her regimen at home other than she takes metformin. We will hold metformin given patient's need for inpatient stay. Continue with insulin per sliding scale plus Levemir and insulin with meals. Increase Levemir dose. Increase prandial dose. Follow hemoglobin A1c 16. Started atorvastatin, mild hypertriglyceridemia. Patient education. (4) CKD (chronic kidney disease) stage 3, GFR 30-59 ml/min ICD Code: N18.3 - Chronic kidney disease, stage 3 (moderate) Plan: We will follow with nephrology, appreciate further recommendations. Avoid nephrotoxins. Creatinine increasing, 2.5. Nephrology following, concerning with increasing creatinine. Will continue to monitor. Discharge Planning Case management assisting, difficult discharge due to inability for home health care coverage and minimal coverage with SNF. Plan is for to undergo education for wound VAC change and placement so that he can manage at home. He attempted wound VAC change today. Will do one more change tomorrow. Patient's wound VAC in room with supplies. Awaiting pictures disease referral for outpatient antibiotics. Young placement per IR. Problem Qualifiers (1) Uncontrolled diabetes mellitus: Izabel Stiles Aug 02, 2017 10:35
[2017-08-02] MEDS ORDERED: EUCERIN CREAM 120 GM JAR TOPICAL PRN (11:00)
[2017-08-02] MEDS: CHOLECALCIFEROL (VIT D3) 1000 UNIT TAB PO SCH (15:08)
--- NOTE | 2017-08-02 16:36 | HHI.NPPN ---
Subjective History of Present Illness This patient is a 57-year-old Afro-[place] female with a history of long- standing diabetes mellitus and hypertension and from the records I reviewed some noncompliance with medical care. She was previously hospitalized at this institution back in October 2012. At that time she was admitted with a left lower extremity diabetic wounds and was noted to have acute renal insufficiency. She subsequently left the hospital AM. On October 24, 2012 her creatinine level was noted to be 2.09. She subsequently was admitted to [facility] and her creatinine level improved at time of discharge 0.6. Appears that the patient went up north to [place]. Patient is a very poor historian when it comes to details regarding her previous medical history. She cannot indicates to me what continuity of care she had out of state or the name of the physician that she was seeing a when her last bar to study was done prior to this admission. Subsequently admitted to this institution with a history of nausea and vomiting. Noted to have significant hyperglycemia. Creatinine level on presentation was elevated and is currently 2.3 at time of consultation with an estimated GFR of 26. Also anemic with a hemoglobin of 9.8. Patient indicates that she was using Aleve twice daily for about 7 days prior to presentation. CT scan indicated the presence of a large pelvic mass but nothing significant reported as far as her kidneys were concerned i.e. no hydronephrosis. Also on presentation patient noted to have diabetic ulcer lower extremity with drainage. Interval History Patient had no verbal complaints. She did admit however that her fluid intake has not been very good in house. Objective Data Data Vital Signs Date Time Temp Pulse Resp B/P (MAP) Pulse Ox O2 Delivery O2 Flow Rate FiO2 08/02/17 12:00 98.1 82 18 144/74 (97) 100 08/02/17 08:36 99 08/02/17 08:00 98.2 81 18 137/72 (93) 98 08/02/17 00:00 98.8 98 20 119/59 (79) 99 08/01/17 20:30 98 21 08/01/17 20:00 98.7 97 20 159/70 (99) 100 -: 08/01/17 1900 08/02/17 0913 Physical Exam General Appearance: Well Developed, Well Nourished, No Acute Distress, Comfortable Throat Throat Exam: Oral Mucosa [place] & Moist Neck Neck Exam: Neck Supple, Trachea Midline Pulmonary Resp Exam: Clear Bilaterally, Breath Sounds Equal, No Distress Cardiology CV Exam: Regular, Normal Sinus Rhythm Gastrointestinal/Abdomen GI Exam: Soft, Non-Tender Integumentary Skin Exam: Clear, Warm Extremeties Extremities Exam: No Edema Neurologic Neuro Exam: Alert, Awake Psychiatric Psych Exam: Appropriate Responses Assessment/Plan Problem List: (1) CKD (chronic kidney disease) stage 4, GFR 15-29 ml/min ICD Codes: N18.4 - Chronic kidney disease, stage 4 (severe) Plan: The patient's creatinine level has risen today. Uncertain if this is related to inadequate fluid intake and or vancomycin exposure. It is noted vancomycin has since been discontinued. Repeat renal indices in the a.m. and the patient was encouraged to increase her fluid intake. Suspect patient has underlying CKD related to diabetic nephropathy and hypertensive nephrosclerosis also. Acute decline likely related to NSAID use prior to her admission as well as infectious process. I believe that the patient may be at significant risk for progression of CKD in her lifetime given a history of diabetes mellitus and hypertension as well as questionable compliance with medical medical follow-up. She was counseled regarding the importance of follow-up. In view of the above I believe she is also at significant risk in her lifetime to progress to end-stage renal disease and I would like to try to preserve her peripheral veins if possible she may require AV fistula creation at some point in time. Therefore ideally would like to avoid the placement of the PICC line or midline unless absolutely essential. Young catheter can be considered as an alternative if okay with infectious disease. Will continue to monitor in the periphery. Please call with any questions. Medications should be adjusted for the patient's estimated GFR if clinically indicated. Avoid agents with significant potential for nephrotoxicity possible including NSAIDs for analgesia, iodine contrast agents. Gadolinium is contraindicated if the GFR is below 30. (2) Diabetic nephropathy associated with type 2 diabetes mellitus ICD Codes: E11.21 - Type 2 diabetes mellitus with diabetic nephropathy Plan: Defer management to primary care physician. (3) Pelvic mass ICD Codes: R19.00 - Intra-abdominal and pelvic swelling, mass and lump, unspecified site Plan: Defer management to primary care physician. (4) Diabetic foot infection ICD Codes: E11.69 - Type 2 diabetes mellitus with other specified complication ; L08.9 - Local infection of the skin and subcutaneous tissue, unspecified Status: Acute Marcelino Biggs MD Aug 02, 2017 16:36
[2017-08-02] MEDS: DAPTOmycin INJ 500 MG in SODIUM CHLORIDE 0.9% INJ 100 ML IV SCH (17:05)
[2017-08-03] VITALS: BP 118/71; PULSE 90; RESP 20; TEMP 98.5; O2SAT 100
[2017-08-03] MEDS: PIPERACIL-TAZO 3.375 GM PREMIX 50 ML IV SCH ×3 (00:05→15:18)
[2017-08-03] MEDS: SODIUM CHLOR 0.9% 1000 ML INJ 1,000 ML IV SCH ×2 (05:19→15:18)
[2017-08-03] MEDS: SODIUM CHLORIDE 0.9% FLUSH 10 ML FLUSH IV FLUSH SCH ×2 (07:44→21:33)
[2017-08-03 08:00] VITALS: BP 120/56; PULSE 90; RESP 18; TEMP 98.5; O2SAT 100; O2SAT 98
[2017-08-03] MEDS: RESP: ALBUTEROL 2.5 MG/3 ML NEB (SCH) NEB ×4 (08:00→20:11)
[2017-08-03] MEDS: BUDESONIDE-FORMOTEROL 160/4.5 MCG INHALER INH SCH ×2 (08:40→21:32)
[2017-08-03] MEDS: CHOLECALCIFEROL (VIT D3) 1000 UNIT TAB PO SCH (08:41)
[2017-08-03] MEDS: INSULIN HUMAN REGULAR 1,000 UNITS/10 ML VIAL SQ SCH ×3 (08:41→17:38)
[2017-08-03] MEDS: INSULIN DETEMIR 100 UNITS/ML VIAL SQ SCH ×2 (08:41→21:30)
[2017-08-03] MEDS: INSULIN ASPART SUPPLEMENTAL SCALE SQ SCH ×4 (08:42→21:29)
[2017-08-03 09:19] LABS: AUTOMATED NEUTROPHIL # 7.7 TH/MM3 (1.8-7.7); BASOPHIL # 0.1 TH/MM3 (0-0.2); BASOPHIL % 0.9 % (0.0-2.0); EOSINOPHIL # 0.3 TH/MM3 (0-0.4); EOSINOPHIL % 2.8 % (0.0-4.0); HEMATOCRIT 24.4 % (35.0-46.0); HEMOGLOBIN 7.8 GM/DL (11.6-15.3); LYMPH % 21.1 % (9.0-44.0); LYMPHOCYTE # 2.3 TH/MM3 (1.0-4.8); MEAN CELL VOLUME 89.5 FL (80.0-100.0); MEAN CORPUSCULAR HEMOGLOBIN 28.5 PG (27.0-34.0); MEAN CORPUSCULAR HGB CONC 31.8 % (32.0-36.0); MONO % 6.2 % (0.0-8.0); MONOCYTE # 0.7 TH/MM3 (0-0.9); PLATELET COUNT 322 TH/MM3 (150-450); RED BLOOD COUNT 2.73 MIL/MM3 (4.00-5.30); WHITE BLOOD COUNT 11.1 TH/MM3 (4.0-11.0)
--- NOTE | 2017-08-03 09:29 | HHI.IDPN ---
Subjective Subjective Remarks Feels alright No fevers Has a wound vac on foot Up in bed needs a CVL Antibiotics Vancomycin and Zosyn Lines Peripheral IV line Past Medical History DM Allergies: Coded Allergies: Sulfa (Sulfonamide Antibiotics) (Unverified Allergy, Unknown, DIFFICULTY BREATHING, 07/29/17) Objective . Vital Signs Date Time Temp Pulse Resp B/P (MAP) Pulse Ox O2 Delivery O2 Flow Rate FiO2 08/03/17 08:00 98 21 08/03/17 00:00 98.5 90 20 118/71 (87) 100 08/02/17 20:11 100 21 08/02/17 20:00 98.1 93 20 136/64 (88) 100 08/02/17 16:00 97.1 82 18 133/76 (95) 100 08/02/17 12:00 98.1 82 18 144/74 (97) 100 . Laboratory Tests Test 08/01/17 19:00 08/03/17 08:40 White Blood Count 9.5 TH/MM3 11.1 TH/MM3 Red Blood Count 2.87 MIL/MM3 2.73 MIL/MM3 Hemoglobin 8.1 GM/DL 7.8 GM/DL Hematocrit 25.6 % 24.4 % Mean Corpuscular Volume 89.3 FL 89.5 FL Mean Corpuscular Hemoglobin 28.3 PG 28.5 PG Mean Corpuscular Hemoglobin Concent 31.6 % 31.8 % Red Cell Distribution Width 13.2 % 14.0 % Platelet Count 343 TH/MM3 322 TH/MM3 Mean Platelet Volume 7.7 FL 8.0 FL Neutrophils (%) (Auto) 69.0 % Lymphocytes (%) (Auto) 21.1 % Monocytes (%) (Auto) 6.2 % Eosinophils (%) (Auto) 2.8 % Basophils (%) (Auto) 0.9 % Neutrophils # (Auto) 7.7 TH/MM3 Lymphocytes # (Auto) 2.3 TH/MM3 Monocytes # (Auto) 0.7 TH/MM3 Eosinophils # (Auto) 0.3 TH/MM3 Basophils # (Auto) 0.1 TH/MM3 CBC Comment DIFF FINAL Differential Comment Laboratory Tests Test 08/01/17 19:00 08/02/17 09:13 08/03/17 08:40 Total Creatine Kinase 43 U/L Blood Urea Nitrogen 27 MG/DL Creatinine 2.50 MG/DL Random Glucose 311 MG/DL Albumin 2.0 GM/DL Calcium Level 8.1 MG/DL Phosphorus Level 3.7 MG/DL Sodium Level 136 MEQ/L 135 MEQ/L Potassium Level 4.2 MEQ/L 4.2 MEQ/L Chloride Level 105 MEQ/L 104 MEQ/L Carbon Dioxide Level 22.4 MEQ/L Anion Gap 9 MEQ/L Estimat Glomerular Filtration Rate 24 ML/MIN Physical Exam GENERAL: This is a pleasant obese female SKIN: Has a wound vac on right foot. HEAD: Atraumatic. Normocephalic. No temporal or scalp tenderness. EYES: Pupils equal round and reactive. Extraocular motions intact. No scleral icterus. No injection or drainage. ENT: Nose without bleeding, purulent drainage or septal hematoma. Throat without erythema, tonsillar hypertrophy or exudate. Uvula midline. Airway patent. NECK: Trachea midline. No JVD or lymphadenopathy. Supple, nontender, no meningeal signs. CARDIOVASCULAR: Regular rate and rhythm without murmurs, gallops, or rubs. RESPIRATORY: Clear to auscultation. Breath sounds equal bilaterally. No wheezes , rales, or rhonchi. GASTROINTESTINAL: Abdomen soft, non-tender, nondistended. No hepato-splenomegaly , or palpable masses. No guarding. MUSCULOSKELETAL: Right foot with wound vac. NEUROLOGICAL: Awake and alert. Cranial nerves II through XII intact. Peripheral neuropathy Assessment & Plan Diagnosis: (1) Uncontrolled diabetes mellitus ICD Codes: E11.65 - Type 2 diabetes mellitus with hyperglycemia Status: Acute (2) Diabetic foot infection ICD Codes: E11.69 - Type 2 diabetes mellitus with other specified complication ; L08.9 - Local infection of the skin and subcutaneous tissue, unspecified Status: Acute Plan: RIGHT DIABETIC FOOT WOUND S/P DEBRIDEMENT Patient will need cubicin 6mg / kg iv q48h stop date 09/04/17 along with Rocephin 1g iv q24h weekly labs cbc cpk cmp crp esr stop date 09/04/17 orders on chart fu in our office 3- 4 weeks (3) Diabetic nephropathy associated with type 2 diabetes mellitus ICD Codes: E11.21 - Type 2 diabetes mellitus with diabetic nephropathy Problem Qualifiers (1) Uncontrolled diabetes mellitus: Cassie Pickett Aug 03, 2017 09:29
--- NOTE | 2017-08-03 09:49 | HHI.FF ---
Infusion Therapy Location of Infusion Therapy: Home [facility] IV Infusion Order Patient Information Patient Weight 146 kg Diagnosis: (1) Diabetic foot infection (2) Diabetic nephropathy associated with type 2 diabetes mellitus Coded Allergies: Sulfa (Sulfonamide Antibiotics) (Unverified Allergy, Unknown, DIFFICULTY BREATHING, 07/29/17) Administer Medication Ceftriaxone 1 gram IV q 24 hours Start Treatment: Aug 03, 2017 Stop Treatment: Aug 31, 2017 Administer Medication Daptomycin 500 mg IV q 48 hours Start Treatment: Aug 03, 2017 Stop Treatment: Aug 31, 2017 Additional Information Venous access: Other Additional Instructions [x] Peripheral flush and dressing changes per protocol [x] Implanted port and central linen manager: * Implanted port: 10 ml Normal Saline followed by 5 ml Heparin 100 units/ml Heparin flush after each use and monthly to maintain. [] May leave port accessed during therapy. [] May leave peripheral site accessed for duration of therapy. [x] If patient has SOB or respiratory distress, check oxygen saturation. If less than 90% or clinical signs of respiratory distress, administer oxygen at 2 L/min. via nasal cannula and notify physician. [x] Anaphylaxis/Reaction orders: * Stop infusion. * Keep IV line open with saline flush. * Notify physician. * Monitor vital signs every 15 minutes until symptoms resolve. * Check Oxygen saturation; Oxygen at 2 L/min. via nasal cannula if less than 90% or clinical signs of respiratory distress. * Administer diphenhydramine (Benadryl) 25 mg IV STAT, (unless patient has received as pre-med). May repeat once, if necessary. * Solu-Cortef 250 mg IVP over 30-60 seconds, use 100 mg vials for each dissolution. * Epinephrine (1mg/1 ml) 0.3 mg subcutaneously or IVP now with any signs of respiratory distress. * Check with physician for new additional pre-med orders if patient is re- challenged or re-treated. [x] May remove PICC line when treatment complete, after confirming with Physician. [x] If the patient is admitted to the hospital, the ED, or transferred via [facility] , complete transfer form including medication reconciliation order sheet. Laboratory Tests Weekly Labs: CBC w/diff, CMP, CRP, SED Rate, Serum CK Levels Additional Information Fax lab results to Dr Winslow's office - [phone] Winslow in 2 weeks Aaliyah Winslow MD Aug 03, 2017 09:49
[2017-08-03 09:52] LABS: BICARBONATE 20.9 MEQ/L (21.0-32.0); CALCIUM 8.4 MG/DL (8.5-10.1)
[2017-08-03 10:03] LABS: CREATININE 1.8 MG/DL (0.50-1.00)
[2017-08-03 12:00] VITALS: BP 118/60; RESP 16; TEMP 98; O2SAT 100
--- NOTE | 2017-08-03 12:45 | HHI.PR ---
Subjective Remarks Follow-up right foot infected wound status post wound VAC placement. Patient seen and examined, sitting up in bed eating breakfast. Denies any changes. Denies any pain. Vital signs are stable. Awaiting discharge plans and arrangement of outpatient IV antibiotics. Objective Vitals Vital Signs Date Time Temp Pulse Resp B/P (MAP) Pulse Ox O2 Delivery O2 Flow Rate FiO2 08/03/17 08:00 98.5 90 18 120/56 (77) 100 08/03/17 08:00 98 21 08/03/17 00:00 98.5 90 20 118/71 (87) 100 08/02/17 20:11 100 21 08/02/17 20:00 98.1 93 20 136/64 (88) 100 08/02/17 16:00 97.1 82 18 133/76 (95) 100 I/O 08/02/17 08/02/17 08/02/17 08/03/17 08/03/17 08/03/17 07:00 15:00 23:00 07:00 15:00 23:00 Intake Total 1290 ml 50 ml 1750 ml 1770 ml 50 ml Balance 1290 ml 50 ml 1750 ml 1770 ml 50 ml Intake Oral 240 ml 600 ml 720 ml IV Total 1050 ml 50 ml 1150 ml 1050 ml 50 ml # Voids 2 3 1 # Bowel Movements 2 1 1 Result Diagram: 08/03/17 0840 08/03/17 0840 Imaging Last Impressions Foot X-Ray 07/29/17 1221 Signed Impressions: Service Date/Time: Saturday, July 29, 2017 12:24 - CONCLUSION: 1. No radiographic evidence to clearly suggest osteomyelitis. 2. Old trauma involving the proximal phalanx of the third toe. Kiko Mccarty Jr., MD Abdomen/Pelvis CT 07/29/17 1055 Signed Impressions: Service Date/Time: Saturday, July 29, 2017 11:48 - CONCLUSION: 1. Scattered diverticulosis without diverticulitis. 2. No renal calculi or hydronephrosis. 3. Small hiatal hernia and thickening of the distal because. 4. 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 Clinton Haji MD Foot MRI 07/29/17 0000 Signed Impressions: Service Date/Time: Saturday, July 29, 2017 16:31 - CONCLUSION: 1. Focal abnormal collection of soft tissue along the dorsum of the foot measuring 2.5 x 3.4 cm. This is suggestive of a inflammatory process and/or granulomatous tissue. No loculated fluid collection is seen to indicate an abscess. 2. No evidence of osteomyelitis. Raymond Arroyo MD Objective Remarks GENERAL: Well-developed, obese female patient in [facility]. SKIN: Warm and dry. No rash. HEAD: Normocephalic. Atraumatic. EYES: Pupils equal and round. No scleral icterus. No injection or drainage. ENT: No nasal bleeding or discharge. Mucous membranes pink and moist. NECK: Supple. Trachea midline. CARDIOVASCULAR: Regular rate and rhythm. S1, S2 noted. No murmur appreciated. RESPIRATORY: No accessory muscle use. Clear to auscultation. Breath sounds equal bilaterally. GASTROINTESTINAL: Abdomen soft, non-tender, nondistended. Normoactive bowel sounds x4. MUSCULOSKELETAL: Right lower extremity infected wound. Status post I&D. Wound VAC in place NEUROLOGICAL: Awake and alert. No obvious cranial nerve deficits. Motor grossly within normal limits. 5/5 muscle strength in bilateral upper and lower extremities. Normal speech. PSYCHIATRIC: Appropriate mood and affect; insight and judgment normal. A/P Problem List: (1) Pelvic mass ICD Code: R19.00 - Intra-abdominal and pelvic swelling, mass and lump, unspecified site Plan: Follow clinically (2) Diabetic foot infection ICD Code: E11.69 - Type 2 diabetes mellitus with other specified complication; L08.9 - Local infection of the skin and subcutaneous tissue, unspecified Status: Acute Plan: MRI of the right foot showing no osteomyelitis and no abscess. Continue Zosyn, infectious disease started on daptomycin. Outpatient referral for antibiotics placed by ID. Case management assisting for discharge. Status post I&D 07/31/17, wound VAC placed. Possible skin grafting in the future. Management of wound VAC will be per at home, supplies delivered in in room. With sepsis present on admission, continue IV hydration and follow-up blood cultures. Blood cultures negative to date. Repeat wound culture showing MRSA, group B beta strep, Proteus mirabilis, Klebsiella oxytoca, ID following, sensitivity noted. Spoke to Nephrology who does not prefer patient to have midline nor PICC placement. Opt for Young placement via IR. Awaiting placement (3) Uncontrolled diabetes mellitus ICD Code: E11.65 - Type 2 diabetes mellitus with hyperglycemia Status: Acute Plan: Patient is not sure of her regimen at home other than she takes metformin. We will hold metformin given patient's need for inpatient stay. Continue with insulin per sliding scale plus Levemir and insulin with meals. Continue Levemir dose. Continue prandial dose. Follow hemoglobin A1c 16. Started atorvastatin, mild hypertriglyceridemia. Patient education. (4) CKD (chronic kidney disease) stage 3, GFR 30-59 ml/min ICD Code: N18.3 - Chronic kidney disease, stage 3 (moderate) Plan: We will follow with nephrology, appreciate further recommendations. Avoid nephrotoxins. Creatinine 1.8 today. Nephrology following, okay to discharge if creatinine is improving. (5) Normocytic normochromic anemia ICD Code: D64.9 - Anemia, unspecified Plan: Hemoglobin 7.8/hematocrit 24.4. Patient has trended down since presentation. Wound VAC continued with minimal serosanguineous drainage. No other signs of bleeding. Could be secondary to kidney disease versus antibiotic use versus wound drainage versus dilutional versus other source of bleeding. We will continue to monitor. Repeat labs in a.m. Discharge Planning Case management assisting, difficult discharge due to inability for home health care coverage and minimal coverage with SNF. Plan is for to undergo education for wound VAC change and placement so that he can manage at home. Patient has been performing wound VAC changes. Patient's wound VAC in room with supplies. Awaiting Young placement per IR. ID with antibiotic referral on chart, case planner assisting for discharge. Patient is medically clear to discharge, awaiting discharge plans for outpatient IV antibiotics. Problem Qualifiers (1) Uncontrolled diabetes mellitus: Izabel Stiles Aug 03, 2017 12:45
[2017-08-03 16:00] VITALS: BP 127/58; PULSE 89; RESP 18; TEMP 97.6; O2SAT 100
[2017-08-03] MEDS: DAPTOmycin INJ 500 MG in SODIUM CHLORIDE 0.9% INJ 100 ML IV SCH (17:33)
[2017-08-03 20:00] VITALS: BP 123/91; PULSE 96; RESP 20; TEMP 97.3; O2SAT 100
[2017-08-03 20:11] VITALS: O2SAT 100
[2017-08-04] VITALS (8 sets, daily range): BP systolic 109–175; BP diastolic 57–78; PULSE 88–92; RESP 16–18; TEMP 97.6–98.3; O2SAT 97–100
[2017-08-04] MEDS: SODIUM CHLOR 0.9% 1000 ML INJ 1,000 ML IV SCH ×3 (00:20→21:25)
[2017-08-04] MEDS: PIPERACIL-TAZO 3.375 GM PREMIX 50 ML IV SCH ×4 (00:20→23:19)
[2017-08-04] MEDS: RESP: ALBUTEROL 2.5 MG/3 ML NEB (SCH) NEB ×4 (07:56→21:28)
[2017-08-04] MEDS: INSULIN ASPART SUPPLEMENTAL SCALE SQ SCH ×4 (08:00→17:34)
--- NOTE | 2017-08-04 09:42 | HHI.PR ---
Subjective Remarks Follow-up infected right foot wound, status post wound VAC placement. Patient seen and examined, sitting on side of bed comfortably. No change in clinical condition. Denies any pain. Awaiting Young catheter placement via IR today. N.p.o. until then. Case management assisting with outpatient antibiotic referral. Objective Vitals Vital Signs Date Time Temp Pulse Resp B/P (MAP) Pulse Ox O2 Delivery O2 Flow Rate FiO2 08/04/17 00:00 98.2 92 18 157/65 (95) 98 08/03/17 20:11 100 21 08/03/17 20:00 97.3 96 20 123/91 (102) 100 08/03/17 16:00 97.6 89 18 127/58 (81) 100 08/03/17 12:00 98.0 16 118/60 (79) 100 I/O 08/03/17 08/03/17 08/03/17 08/04/17 08/04/17 08/04/17 07:00 15:00 23:00 07:00 15:00 23:00 Intake Total 1770 ml 50 ml 1750 ml 1958 ml Output Total 1 ml 1500 ml Balance 1770 ml 50 ml 1749 ml 458 ml Intake Oral 720 ml 600 ml 720 ml IV Total 1050 ml 50 ml 1150 ml 1238 ml Output Urine Total 1500 ml Stool Total 1 ml # Voids 1 4 # Bowel Movements 1 Result Diagram: 08/03/17 0840 08/03/17 0840 Imaging Last Impressions Foot X-Ray 07/29/17 1221 Signed Impressions: Service Date/Time: Saturday, July 29, 2017 12:24 - CONCLUSION: 1. No radiographic evidence to clearly suggest osteomyelitis. 2. Old trauma involving the proximal phalanx of the third toe. Kiko Mccarty Jr., MD Abdomen/Pelvis CT 07/29/17 1055 Signed Impressions: Service Date/Time: Saturday, July 29, 2017 11:48 - CONCLUSION: 1. Scattered diverticulosis without diverticulitis. 2. No renal calculi or hydronephrosis. 3. Small hiatal hernia and thickening of the distal because. 4. 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 Clinton Haji MD Foot MRI 07/29/17 0000 Signed Impressions: Service Date/Time: Saturday, July 29, 2017 16:31 - CONCLUSION: 1. Focal abnormal collection of soft tissue along the dorsum of the foot measuring 2.5 x 3.4 cm. This is suggestive of a inflammatory process and/or granulomatous tissue. No loculated fluid collection is seen to indicate an abscess. 2. No evidence of osteomyelitis. Raymond Arroyo MD Objective Remarks GENERAL: Well-developed, obese female patient in [facility]. SKIN: Warm and dry. No rash. HEAD: Normocephalic. Atraumatic. EYES: Pupils equal and round. No scleral icterus. No injection or drainage. ENT: No nasal bleeding or discharge. Mucous membranes pink and moist. NECK: Supple. Trachea midline. CARDIOVASCULAR: Regular rate and rhythm. S1, S2 noted. No murmur appreciated. RESPIRATORY: No accessory muscle use. Clear to auscultation. Breath sounds equal bilaterally. GASTROINTESTINAL: Abdomen soft, non-tender, nondistended. Normoactive bowel sounds x4. MUSCULOSKELETAL: Right lower extremity wound. Wound VAC in place NEUROLOGICAL: Awake and alert. No obvious cranial nerve deficits. Motor grossly within normal limits. 5/5 muscle strength in bilateral upper and lower extremities. Normal speech. PSYCHIATRIC: Appropriate mood and affect; insight and judgment normal. A/P Problem List: (1) Pelvic mass ICD Code: R19.00 - Intra-abdominal and pelvic swelling, mass and lump, unspecified site Plan: Follow clinically (2) Diabetic foot infection ICD Code: E11.69 - Type 2 diabetes mellitus with other specified complication; L08.9 - Local infection of the skin and subcutaneous tissue, unspecified Status: Acute Plan: MRI of the right foot showing no osteomyelitis and no abscess. Continue Zosyn, infectious disease started on daptomycin. Outpatient referral for antibiotics placed by Alexandre JOHN and Alf. Case management assisting for discharge. Status post I&D 07/31/17, wound VAC placed. Possible skin grafting in the future. Management of wound VAC will be per at home, supplies delivered in in room. With sepsis present on admission, continue IV hydration and follow-up blood cultures. Blood cultures negative to date. Repeat wound culture showing MRSA, group B beta strep, Proteus mirabilis, Klebsiella oxytoca, ID following, sensitivity noted. Spoke to Nephrology who does not prefer patient to have midline nor PICC placement. Opt for Young placement via IR. Awaiting placement (3) Uncontrolled diabetes mellitus ICD Code: E11.65 - Type 2 diabetes mellitus with hyperglycemia Status: Acute Plan: Patient is not sure of her regimen at home other than she takes metformin. We will hold metformin given patient's need for inpatient stay. Continue with insulin per sliding scale plus Levemir and insulin with meals. Continue Levemir dose. Continue prandial dose. Follow hemoglobin A1c 16. Started atorvastatin, mild hypertriglyceridemia. Patient education. (4) CKD (chronic kidney disease) stage 3, GFR 30-59 ml/min ICD Code: N18.3 - Chronic kidney disease, stage 3 (moderate) Plan: We will follow with nephrology, appreciate further recommendations. Avoid nephrotoxins. Creatinine 1.4 today. Nephrology following, okay to discharge if creatinine is improving. (5) Normocytic normochromic anemia ICD Code: D64.9 - Anemia, unspecified Plan: Hemoglobin 7.8/hematocrit 24.4. Patient has trended down since presentation. Wound VAC continued with minimal serosanguineous drainage. No other signs of bleeding. Will obtain stool Hemoccult. Follow. Could be secondary to kidney disease versus antibiotic use versus wound drainage versus dilutional versus other source of bleeding. We will continue to monitor. Discharge Planning Case management assisting, difficult discharge due to inability for home health care coverage and minimal coverage with SNF. Plan is for to undergo education for wound VAC change and placement so that he can manage at home. Patient has been performing wound VAC changes. Patient's wound VAC in room with supplies. Awaiting Young placement per IR. ID with antibiotic referral on chart, case specialist assisting for discharge. Patient is medically clear to discharge, awaiting discharge plans for outpatient IV antibiotics. Problem Qualifiers (1) Uncontrolled diabetes mellitus: Izabel Stiles Aug 04, 2017 09:42
[2017-08-04] MEDS: INSULIN HUMAN REGULAR 1,000 UNITS/10 ML VIAL SQ SCH ×3 (09:51→17:34)
[2017-08-04] MEDS: INSULIN DETEMIR 100 UNITS/ML VIAL SQ SCH ×2 (09:51→21:22)
[2017-08-04] MEDS: CHOLECALCIFEROL (VIT D3) 1000 UNIT TAB PO SCH (09:51)
[2017-08-04] MEDS: BUDESONIDE-FORMOTEROL 160/4.5 MCG INHALER INH SCH ×2 (09:51→21:22)
[2017-08-04] MEDS: SODIUM CHLORIDE 0.9% FLUSH 10 ML FLUSH IV FLUSH SCH ×2 (09:52→21:22)
[2017-08-04 11:27] LABS: AUTOMATED NEUTROPHIL # 6.1 TH/MM3 (1.8-7.7); BASOPHIL # 0.1 TH/MM3 (0-0.2); BASOPHIL % 0.9 % (0.0-2.0); EOSINOPHIL # 0.3 TH/MM3 (0-0.4); EOSINOPHIL % 3.4 % (0.0-4.0); HEMATOCRIT 25.2 % (35.0-46.0); HEMOGLOBIN 7.9 GM/DL (11.6-15.3); LYMPH % 23.5 % (9.0-44.0); LYMPHOCYTE # 2.2 TH/MM3 (1.0-4.8); MEAN CELL VOLUME 90.3 FL (80.0-100.0); MEAN CORPUSCULAR HEMOGLOBIN 28.4 PG (27.0-34.0); MEAN CORPUSCULAR HGB CONC 31.4 % (32.0-36.0); MEAN PLATELET VOLUME 7.7 FL (7.0-11.0); MONO % 6.5 % (0.0-8.0); MONOCYTE # 0.6 TH/MM3 (0-0.9); NEUT % 65.7 % (16.0-70.0); PLATELET COUNT 344 TH/MM3 (150-450); RED BLOOD COUNT 2.79 MIL/MM3 (4.00-5.30); RED CELL DISTRIBUTION WIDTH 13.9 % (11.6-17.2); WHITE BLOOD COUNT 9.3 TH/MM3 (4.0-11.0)
[2017-08-04 11:38] LABS: CALCIUM 8.5 MG/DL (8.5-10.1)
[2017-08-04 11:39] LABS: BICARBONATE 22.4 MEQ/L (21.0-32.0)
[2017-08-04 11:42] LABS: CREATININE 1.4 MG/DL (0.50-1.00)
[2017-08-04 11:53] LABS: PROTHROMBIN TIME - PATIENT 9.7 SEC (9.8-11.6)
[2017-08-04] MEDS ORDERED: VANCOMYCIN INJ 1,000 MG in SODIUM CHLOR 0.9% 250 ML INJ 250 ML IV SCH (12:00)
[2017-08-04] MEDS ORDERED: ceFAZolin 2 GM PREMIX 50 ML IV SCH (12:00)
--- NOTE | 2017-08-04 15:17 | PD.RAD ---
Post Procedure Progress Note Pre Procedure Diagnosis: (1) Diabetic foot infection Post Procedure Diagnosis: (1) Diabetic foot infection Procedure Date: Aug 04, 2017 Supervising Radiologist: Thomas Pritchett Estimated blood loss: 2cc Anesthesia: Local, Conscious Sedation Plan of Activity Patient to Unit: Nursing Unit Patient Condition: Good Additional Comments: Right IJ single lumen Young placed Catheter is in good position OK for use See PACS Report for procedural detail/treatment Thomas Pritchett MD Aug 04, 2017 15:17
--- NOTE | 2017-08-04 16:16 | RADRPT ---
EXAM DATE/TIME: 08/04/2017 13:35 [facility] COMPARISON: No previous studies available for comparison. INDICATIONS : Patient with right diabetic foot infection in need of Young catheter placement for antibiotics. MEDICAL HISTORY : HTN, Diabetes, Venous-thrombus embolic event, HLD, Asthma SURGICAL HISTORY : Right foot surgery, Tubal ligation ENCOUNTER: Initial ACUITY: 4-6 months PAIN SCORE: 6/10 LOCATION: Right foot FLUORO TIME: 0.6 minutes IMAGE SERIES: 2 SEDATION TIME: 30 minutes ACCESS: Right internal jugular vein SEDATION: 1.) 2 mg midazolam (Versed) IV 2.) 100 mcg fentanyl (Sublimaze) IV Prophylactic antibiotics were administered with appropriate pre-procedure timing. Vancomycin within 2 hours of procedure, Ancef (or alternative) within 1 hour of procedure. DEVICE: 1. 6 [place] single lumen Young catheter PROCEDURE : 1. Fluoroscopic guidance. 2. Young catheter placement 3. Conscious sedation with continuous EKG and oximetry monitoring. The risks, benefits and alternatives to the procedure were explained and verbal and written consent w as obtained. The site was prepped in sterile fashion. Full sterile technique was used, including ca p, mask, sterile gloves and gown and a large sterile sheet. Hand hygiene and 2% chlorhexidine and Be tadine was utilized per protocol for cutaneous antisepsis with appropriate dry time for site. The sk in and subcutaneous tissues were infiltrated with local anesthetic solution. With fluoroscopic and ultrasound guidance the right internal jugular vein was accessed. A micropunct ure set was used to access to the jugular vein and serial dilatation was performed to accept a Hickma n catheter. A subcutaneous tunnel was created and in antegrade fashion the catheter was pulled throu gh the tunnel, cut to the appropriate length and place through the sheath. The catheter was locked w ith heparin and sutured in place. Conscious sedation was performed with the prescribed dosages and duration as above in the presence of an independent trained radiology nurse to assist in the monitoring of the patient. EKG and oximetry remained stable throughout the procedure. The patient tolerated the procedure well and there were no complications. The patient was sent to post anesthesia recovery in stable condition. CONCLUSION: Uncomplicated Young catheter placement as above. Thomas Pritchett MD on August 04, 2017 at 16:13 Board Certified Radiologist. This report was verified electronically.
[2017-08-04] MEDS: DAPTOmycin INJ 500 MG in SODIUM CHLORIDE 0.9% INJ 100 ML IV SCH (17:35)
[2017-08-04] MEDS ORDERED: INSULIN ASPART SUPPLEMENTAL SCALE SQ ONE (21:45)
[2017-08-04 23:52] LABS: KAPPA/LAMBDA FREE 2.25 (0.26-1.65)
[2017-08-05] VITALS: BP 142/69; PULSE 93; RESP 18; TEMP 98.4; O2SAT 99
[2017-08-05] MEDS: SODIUM CHLOR 0.9% 1000 ML INJ 1,000 ML IV SCH (06:11)
[2017-08-05 07:57] VITALS: O2SAT 99
[2017-08-05] MEDS: RESP: ALBUTEROL 2.5 MG/3 ML NEB (SCH) NEB ×3 (07:57→14:43)
[2017-08-05] MEDS: INSULIN ASPART SUPPLEMENTAL SCALE SQ SCH ×3 (08:00→17:00)
[2017-08-05 08:51] VITALS: BP 160/74; PULSE 82; RESP 18; TEMP 97.2; O2SAT 99
[2017-08-05] MEDS: INSULIN DETEMIR 100 UNITS/ML VIAL SQ SCH (09:00)
[2017-08-05] MEDS: INSULIN HUMAN REGULAR 1,000 UNITS/10 ML VIAL SQ SCH ×2 (09:14→12:39)
[2017-08-05] MEDS: PIPERACIL-TAZO 3.375 GM PREMIX 50 ML IV SCH (09:14)
[2017-08-05] MEDS: BUDESONIDE-FORMOTEROL 160/4.5 MCG INHALER INH SCH (09:15)
[2017-08-05] MEDS: CHOLECALCIFEROL (VIT D3) 1000 UNIT TAB PO SCH (09:15)
[2017-08-05] MEDS: SODIUM CHLORIDE 0.9% FLUSH 10 ML FLUSH IV FLUSH SCH (09:15)
--- NOTE | 2017-08-05 13:15 | HHI.PR ---
Subjective Remarks Patient seen and examined today for follow-up on diabetic right foot wound with wound VAC. Awaiting arrangement for outpatient IV antibiotics. Patient denies any new issues. Patient is very eager to be discharged. Unfortunately patient and are getting quite frustrated by being in the hospital waiting for us to arrange outpatient IV antibiotic treatment. Is brought to my attention by patient's nurse that the patient is indicating that her primary doctor Dr. Miguel, is wanting to have her records so he can prescribe her her antibiotics and medications. I went back to speak to the patient and again and notified them that hospital policy is that they need to submit request for medical records upon discharge in order to obtain hospital records. The patient indicates that "I was fully of shit". I tried to discuss with them the hospital policy, that I had been working all day with case management, trying to arrange outpatient antibiotics because there insurance has not given authorization and will not provide home health care to administer medications. I tried to reassure the patient and the that I am working very diligently and trying to arrange safe discharge with IV antibiotics, appropriate outpatient care. The got quite frustrated and jolted out of his seat and demanded that I leave the room stating that I am done. I was unable in order to calm the down so I respected his wishes and left the room and notified Thomas Watson of the confrontation and patient demands. Objective Vitals Vital Signs Date Time Temp Pulse Resp B/P (MAP) Pulse Ox O2 Delivery O2 Flow Rate FiO2 08/05/17 08:51 97.2 82 18 160/74 (102) 99 08/05/17 07:57 99 21 08/05/17 00:00 98.4 93 18 142/69 (93) 99 08/04/17 21:28 99 21 08/04/17 20:00 97.7 90 18 109/62 (78) 100 08/04/17 18:38 97.7 88 16 131/60 (83) 98 08/04/17 16:01 88 16 175/78 (110) 98 08/04/17 15:30 88 16 175/78 (110) 98 08/04/17 15:30 98.3 92 16 143/63 (89) 98 I/O 08/04/17 08/04/17 08/04/17 08/05/1708/05/18 3/13/18 07:00 15:00 23:00 07:00 15:00 23:00 Intake Total 1958 ml 400 ml 1802 ml Output Total 1500 ml 900 ml 500 ml Balance 458 ml -500 ml 1302 ml Intake Oral 720 ml 600 ml IV Total 1238 ml 400 ml 1202 ml Output Urine Total 1500 ml 900 ml 500 ml # Voids 3 # Bowel Movements 3 0 Result Diagram: 08/04/17 1030 08/04/17 1030 Objective Remarks GENERAL: Well-developed, morbidly obese with BMI 55.8, in no acute distress. alert and orientated HEENT: Head is normocephalic without any lesions or masses noted. Facial features are symmetric. Eyes: Extraocular muscles are intact. Conjunctivae were clear. NECK: Supple without any masses. Trachea midline no deviation. No JVD, CARDIAC: Regular rhythm, regular rate. S1/S2 are heard. No murmurs gallops or rubs. LUNGS: Clear to auscultation bilaterally. No wheeze, rhonchi or rales. No use of accessory muscles on inspiration or expiration. ABDOMEN: Soft, nontender. Nondistended. Bowel sounds heard in all 4 quadrants. No organomegaly or masses. Negative rebound, negative guarding EXTREMITIES: No edema, pulses are equal bilaterally. No cyanosis or clubbing NEUROLOGY: Mood and affect appear appropriate. Cranial nerves II through XII grossly intact. Moving all extremities, speech is clear RIGHT LOWER EXTREMITY: Wound VAC in place Urinary Catheter: No Vascular Central Line Catheter: Yes Assessment to: Continue Line: Central Venous Catheter Side: Right Location: Internal, Jugular A/P Assessment and Plan Diabetic right foot infection X-rays and MRI were performed which indicated abnormal collection of soft tissue indicative of inflammatory process. No abscess or osteomyelitis Podiatry evaluated patient status post incision and drainage Wound VAC placement with wound care nurse management Cultures were performed which did indicate MRSA, group B beta strep, Proteus mirabilis, Klebsiella, enterococcus faecalis, Kelsi albicans Infectious disease evaluated patient and recommended IV antibiotics to include Rocephin/daptomycin with stop date August 31, 2017 Status post interventional radiology placement of Young catheter, PICC line /midline were deferred by domestic freight forwarder Diabetes mellitus, uncontrolled secondary to noncompliance Levemir 20 units twice daily Novolin R 10 units 3 times daily before meals Sliding scale insulin Metformin on hold, would recommend discontinuation secondary to renal functions Acute renal failure superimposed on chronic kidney disease stage III Discontinue metformin, avoid nephrotoxins Renal functions are improving Pelvic mass This was seen on initial CT scan didn't indicate probably dermoid Continue outpatient follow-up Hypertension Lisinopril on hold likely secondary to acute kidney injury Start Norvasc 10 mg daily Start lisinopril 20 mg, which is half her normal dose History of venous thromboembolic event Patient was on Xarelto Recommend resuming Eliquis instead secondary to kidney function DVT prevention patient will be on Eliquis Discharge Planning Case management for discharge planning. Awaiting insurance authorization for IV antibiotics. This will be difficult discharge planning secondary patient has [id number] insurance, currently living in a hotel, unable to afford home health care, IV antibiotics. Will also discussed with case management to arrange infusion center for outpatient IV antibiotics as well. Shane Molina Aug 05, 2017 13:15
[2017-08-05 14:01] VITALS: BP 183/77; PULSE 93; RESP 16; TEMP 97.2; O2SAT 100
[2017-08-05] MEDS ORDERED: RESP: ALBUTEROL 2.5 MG/3 ML NEB (PRN) INH (15:00)
--- NOTE | 2017-08-05 15:13 | HHI.DCPOC ---
Discharge Care Plan Diagnosis: (1) Diabetic foot infection (2) Uncontrolled diabetes mellitus (3) Pelvic mass Goals to Promote Your Health * To prevent worsening of your condition and complications * To maintain your health at the optimal level Directions to Meet Your Goals Take your medications as prescribed Follow your dietary instruction Follow activity as directed Keep your appointments as scheduled Take your immunizations and boosters as scheduled If your symptoms worsen call your PCP, if no PCP go to Urgent Care Center or Emergency Room Smoking is Dangerous to Your Health. Avoid second hand smoke Call the 24-hour hour crisis hotline for domestic abuse at Shane Molina Aug 05, 2017 15:12
[2017-08-05] MEDS ORDERED: RESP: ALBUTEROL 2.5 MG/3 ML NEB (SCH) NEB (16:00)
[2017-08-05] MEDS ORDERED: RESP: ALBUTEROL 2.5 MG/IPRATROPIUM 0.5 MG NEB (SCH) NEB (20:00)
[2017-08-05] MEDS ORDERED: APIXABAN 2.5 MG TABLET PO SCH (21:00)
[2017-08-06] MEDS ORDERED: Hickman Catheter Daily NS Lock Flush IV FLUSH SCH (09:00)
[2017-08-06] MEDS ORDERED: LISINOPRIL 20 MG TAB PO SCH (09:00)
--- NOTE | 2017-08-06 11:34 | RADRPT ---
EXAM DATE/TIME: 08/05/2017 00:00 [facility] COMPARISON: BOWERS CATHETER PLACEMENT, RIGHT, August 04, 2017, 13:35. INDICATIONS : Removal of tunneled venous catheter, right foot diabetic wound. MEDICAL HISTORY : Diabetes, renal failure, hypertension, history of venous thrombosis, asthma. SURGICAL HISTORY : Right foot surgery, tubal ligation ENCOUNTER: Initial ACUITY: 4-6 months PAIN SCORE: 0/10 Right chest 0 IMAGE SERIES: 0 ACCESS: PROCEDURE : 1. Bowers catheter removal. The patient declined further treatment as an inpatient and has elected to leave [facility]. The patient has no plans to use the catheter for antibiotic infusion as an outpatient. The catheter was pulled prior to patient leaving. The risks, benefits and alternatives to the procedure were explained and verbal consent was obtained. Hand hygiene and 2% chlorhexidine and/or betadine/alcohol prep was utilized per protocol for cutane ous antisepsis. The catheter had only been in for 24 hours. The stitch securing the catheter to the skin surface was removed. The catheter was easily removed from the tract without difficulty. Manual pressure was appli ed to the venotomy site until hemostasis was obtained. Sterile dressing was applied. The patient tolerated the procedure well and there were no complications. CONCLUSION: Uncomplicated Bowers catheter removal. Thomas Pritchett MD on August 06, 2017 at 11:29 Board Certified Radiologist. This report was verified electronically.
--- NOTE | 2017-08-06 13:00 | HHI.DS ---
Discharge Summary Admission Date Jul 29, 2017 at 12:43 Discharge Date: Aug 05, 2017 Admitting Diagnosis UNCONTROLLED DIABETES, INFECTION RIGHT FOOT (1) Diabetic foot infection ICD Code: E11.69 - Type 2 diabetes mellitus with other specified complication; L08.9 - Local infection of the skin and subcutaneous tissue, unspecified Status: Acute (2) Uncontrolled diabetes mellitus ICD Code: E11.65 - Type 2 diabetes mellitus with hyperglycemia Status: Acute (3) CKD (chronic kidney disease) stage 3, GFR 30-59 ml/min ICD Code: N18.3 - Chronic kidney disease, stage 3 (moderate) (4) Normocytic normochromic anemia ICD Code: D64.9 - Anemia, unspecified (5) Pelvic mass ICD Code: R19.00 - Intra-abdominal and pelvic swelling, mass and lump, unspecified site Procedures 07/31/17 debridement of foot ulcers of right heel and midfoot 08/04/17 placement of Young catheter 08/05/17 removal of Young catheter Brief History - From Admission This patient is a 57-year-old female with diabetes and hypertension. She recently relocated from [place] and in the last several weeks has found a primary care doctor. 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 Patient has some nausea and vomiting for the last 4 days. She has diarrhea and mid epigastric discomfort. She also noted her sugar was high at home. On arrival here it was over 600. Patient received some insulin. On exam the patient also has a right foot infection which has been going on for at least 5 months. She had been seeing a wound care doctor in [place] but has not followed up for the last several months that she has been here. She says there was a blister and it became much more foul-smelling in the last several days. She is tachycardic leukocytosis appears septic. She has severe abdominal pain with which is intermittent and not aggravated by food. She actually has not eaten because she was vomiting. She appears uremic with elevated potassium and acute kidney injury. Patient's been recommended for admission to the hospital CBC/BMP: 08/04/17 1030 08/04/17 1030 Significant Findings Laboratory Tests Test 08/04/17 10:30 Red Blood Count 2.79 MIL/MM3 (4.00-5.30) Hemoglobin 7.9 GM/DL (11.6-15.3) Hematocrit 25.2 % (35.0-46.0) Mean Corpuscular Hemoglobin Concent 31.4 % (32.0-36.0) Prothrombin Time 9.7 SEC (9.8-11.6) Creatinine 1.40 MG/DL (0.50-1.00) Random Glucose 182 MG/DL (74-106) Chloride Level 109 MEQ/L (98-107) Estimat Glomerular Filtration Rate 47 ML/MIN (>89) Imaging Last Impressions Central Venous Line 08/05/17 0000 Signed Impressions: Service Date/Time: Saturday, August 05, 2017 00:00 - CONCLUSION: Uncomplicated Young catheter removal. Thomas Pritchett MD Catheter Placement X-Ray 08/04/17 0000 Signed Impressions: Service Date/Time: Friday, August 04, 2017 13:35 - CONCLUSION: Uncomplicated Young catheter placement as above. Thomas Pritchett MD Foot X-Ray 07/29/17 1221 Signed Impressions: Service Date/Time: Saturday, July 29, 2017 12:24 - CONCLUSION: 1. No radiographic evidence to clearly suggest osteomyelitis. 2. Old trauma involving the proximal phalanx of the third toe. Kiko Mccarty Jr., MD Abdomen/Pelvis CT 07/29/17 1055 Signed Impressions: Service Date/Time: Saturday, July 29, 2017 11:48 - CONCLUSION: 1. Scattered diverticulosis without diverticulitis. 2. No renal calculi or hydronephrosis. 3. Small hiatal hernia and thickening of the distal because. 4. 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 Clinton Haji MD Foot MRI 07/29/17 0000 Signed Impressions: Service Date/Time: Saturday, July 29, 2017 16:31 - CONCLUSION: 1. Focal abnormal collection of soft tissue along the dorsum of the foot measuring 2.5 x 3.4 cm. This is suggestive of a inflammatory process and/or granulomatous tissue. No loculated fluid collection is seen to indicate an abscess. 2. No evidence of osteomyelitis. Raymond Arroyo MD PE at Discharge GENERAL: Well-developed, morbidly obese with BMI 55.8, in no acute distress. alert and orientated HEENT: Head is normocephalic without any lesions or masses noted. Facial features are symmetric. Eyes: Extraocular muscles are intact. Conjunctivae were clear. NECK: Supple without any masses. Trachea midline no deviation. No JVD, CARDIAC: Regular rhythm, regular rate. S1/S2 are heard. No murmurs gallops or rubs. LUNGS: Clear to auscultation bilaterally. No wheeze, rhonchi or rales. No use of accessory muscles on inspiration or expiration. ABDOMEN: Soft, nontender. Nondistended. Bowel sounds heard in all 4 quadrants. No organomegaly or masses. Negative rebound, negative guarding EXTREMITIES: No edema, pulses are equal bilaterally. No cyanosis or clubbing NEUROLOGY: Mood and affect appear appropriate. Cranial nerves II through XII grossly intact. Moving all extremities, speech is clear RIGHT LOWER EXTREMITY: Wound VAC in place Hospital Course Is a 57-year-old female with known history of diabetes, hypertension who recently relocated from [place] down here to [place] and is living in a motel. She recently has found a primary medical doctor in which she indicates was Dr. Miguel. Patient presented to the emergency department because she is having nausea, vomiting for 4 days with diarrhea and epigastric discomfort. Patient was found to have uncontrolled diabetes with blood glucose greater than 600. Upon examination patient was found to have a right foot infection that has been ongoing for at least 5 months. She was being managed by a wound care physician in [place] but has not followed up with anyone since being here in [place]. As indicated there was a blister and became very foul-smelling for several days. Patient was found to have sepsis with tachycardia, leukocytosis, infection acute renal failure with hyperkalemia. Patient was admitted the hospital with IV antibiotics, multiple consultations to commercial production editor, drop forge operator , infectious disease. Patient was started on empirical antibiotics to include vancomycin and Zosyn. Patient underwent surgical debridement of the ulcers of her right heel and midfoot by Dr. Martinez on 07/31/17. Wound VAC placement was done at that time for wound management. Cultures were ascertained of the foot which did indicate polymicrobial with Proteus mirabilis, MRSA, Enterococcus faecalis, group B beta strep, Klebsiella oxytoca, Kelsi albicans. Infectious disease was consulted who made antibiotic recommendations and determinations. Infectious disease made antibiotic recommendations on 08/03/17. the patient should undergo antibiotic treatment with Rocephin 1 g daily and daptomycin 500 mg IV every 48 hours. Both of which would be given until August 31, 2017. Patient did present with acute renal failure which was improving on a daily basis. Nephrology was consulted and helped manage patient during her stay in the hospital. Patient was going to require long-term IV placement for IV antibiotics, it was recommended by nephrology that the patient not undergo any midline or PICC line. They would like to try to preserve her peripheral veins if possible she may require AV fistula creation at some point. They recommended Young catheter should be considered for alternative if okay with infectious disease. Interventional radiology was consulted and successfully placed Young catheter 08/04/17. Case management was consulted to help facilitate outpatient antibiotic administration. It is documented that she will require IV therapy for 4 weeks. Patient is unable to afford co-pays for home health care or retirement facility. It was indicated that patient states that she can self administer her own antibiotics. In that her significant other is a CHEF MANAGER who will be able to do her wound VAC changes. It was directed that the patient significant other brain the wound VAC supplies that he has received back to the hospital in order to be trained on wound VAC placement. However, he did not do so. He was not trained by [facility] medical staff in appropriate wound VAC placement for her care. It was unsuccessful in trying to arrange outpatient antibiotics for patient to have administered or self-administered. We tried to arrange facilitation to the [facility] infusion center for daily antibiotic administration. Outpatient IV antibiotic recommendations were changed to include [facility] infusion center. As indicated by case management that transportation was not a barrier in order for this to be done. Patient was in agreement that time. [facility] medical staff, case management, charge nurse were diligently working in order to arrange appropriate and safe discharge for patient, however, the patient notified nursing staff, charge nurse, case management was called to the room that patient indicates that she spoke with her primary medical doctor who told her that he would prescribe the antibiotics to her and that she can self administer the antibiotics. Nancy the community health navigator did try to call patient's primary medical doctor's office and her primary medical doctor Dr. Miguel was not in the office and that Dr. Richardson was working this day however he is gone for the day. Was unable to speak to any physician at her primary medical doctor office to confirm that she was going to obtain antibiotics and treatment. It was discussed with the patient and her significant other multiple times that if they could please stay in the hospital until we can arrange safe discharge. I pleaded with them multiple times and they were still adamant that they were not going to stay in the hospital. The nursing service administrator Sudarshan Watson and charge nurse Alethea also tried to speak with them about staying in the hospital until safe discharge can be arranged, however, they still did not want to stay in the hospital. Unfortunately, the patient did have surgical placement of Young catheter the day before in order for us to arrange an continue outpatient IV antibiotics. This became a ethical and liability concerns. Since [facility] or any organization associated with [facility] where scheduled or planned on management or care of the medically implanted device, this prompted multiple phone calls. Initial phone call went to Dr. De Jesus from radiology to discuss with him proper procedure. He directed me to Dr. Saul, he indicated that if one would use common sense, the Young catheter should be removed prior to patient leaving the hospital since we were not planning to use it or have a made arrangements for any outpatient management. However, he also specified that if the patient was reliable, not an IV drug user then one could think of leaving the catheter in, even though we do not anticipate using it. I then spoke with the director of [facility], Dr. Rodriguez, I discussed with him the underlying situation with the patient having a Young catheter, patient is signing out AMA , no orders, outpatient management of the medically implanted device or any plan from [facility] to use it for administration of meds. Dr. Rodriguez instructed me that the Young catheter should be removed prior to the patient leaving the hospital. I then called radiology Dr. Saul, he referred me to Dr. Sudarshan Pritchett, I spoke with him about removal of the device. He indicated that the device can be removed, it is very simple procedure. I discussed this with the nursing service administrator Sudarshan Watson, he indicated that nursing staff is not certified to remove surgical implanted devices. I notified Dr. Sudarshan Pritchett that there is nobody here on site that can remove the device. He indicated that he will be [place] to [place] as soon as he can remove the device. Dr. Pritchett removed the Young catheter. The patient then left the hospital AGAINST MEDICAL ADVICE Pt Condition on Discharge: Guarded Discharge Disposition: Discharge Home Discharge Time: > 30 minutes Discharge Instructions DIET: Follow Instructions for: Diabetic Diet Activities you can perform: Regular-No Restrictions Follow up Referrals: Infectious Disease - 3 Weeks Nephrology - 2 Weeks PCP Follow-up - 1 Week New Medications: Walker Rolling/GetGo (Walker Rolling/GetGo) 1 Mis Mis EA .XX DIRECTED, #1 Bariatric Shane Lewis Aug 06, 2017 13:00
[2017-08-06] MEDS ORDERED: cefTRIAXone INJ 1,000 MG in SODIUM CHLORIDE 0.9% INJ 100 ML IV SCH (15:00)
== END 2017-08-05 18:30 | disposition left against medical advice (07) | DRG 638 ==
LOC: PHED 09:27 → PHEDA 12:43 → PH3A 17:03
PROVIDERS: ADMIT Hospitalist; ATTEND Hospitalist
PROC: 0JBQ3ZZ Excision of Right Foot Subcutaneous Tissue and Fascia, Percutaneous Approach (ICD-10-PCS; principal; 2017-07-31 07:11)
PROC: 2W1SX6Z Compression of Right Foot using Pressure Dressing (ICD-10-PCS; 2017-08-01)
PROC: 05HM33Z Insertion of Infusion Device into Right Internal Jugular Vein, Percutaneous Approach (ICD-10-PCS; 2017-08-04)
PROC: B513ZZA Fluoroscopy of Right Jugular Veins, Guidance (ICD-10-PCS; 2017-08-04)
PROC: 02PY33Z Removal of Infusion Device from Great Vessel, Percutaneous Approach (ICD-10-PCS; 2017-08-05)
DX: E11.621 Type 2 diabetes mellitus with foot ulcer (principal); L97.411 Non-pressure chronic ulcer of right heel and midfoot limited to breakdown of skin; E11.21 Type 2 diabetes mellitus with diabetic nephropathy; N17.9 Acute kidney failure, unspecified; N18.3 Chronic kidney disease, stage 3 (moderate); Z68.43 Body mass index [BMI] 50.0-59.9, adult; E11.65 Type 2 diabetes mellitus with hyperglycemia; E11.22 Type 2 diabetes mellitus with diabetic chronic kidney disease; E66.9 Obesity, unspecified; R19.00 Intra-abdominal and pelvic swelling, mass and lump, unspecified site; M14.679 Charcot's joint, unspecified ankle and foot; N28.9 Disorder of kidney and ureter, unspecified; D64.9 Anemia, unspecified; Z23 Encounter for immunization; Z91.19 Patient's noncompliance with other medical treatment and regimen; Z79.4 Long term (current) use of insulin; Z83.3 Family history of diabetes mellitus
CPT/HCPCS: 36558; 73630; 73718; 74176; 76937; 77001; 80048; 80053; 80061; 80069; 80202; 81001; 82010; 82306; 82550; 82947; 82948; 83036; 83540; 83550; 83605; 83690; 83883; 83970; 84165; 85007; 85025; 85027; 85610; 85730; 86160; 86335; 86403; 86803; 87015; 87040; 87070; 87077; 87102; 87116; 87147; 87186; 87205; 87206; 87340; 90471; 90732; 93005; 94640; 94664; 96361; 96372; 96374; 96376; 99152; 99153; C1751; C1769; G0009; J0690; J0878; J1644; J1815; J2250; J2405; J2543; J3010; J3370; J7030; J7040; J7050; J7613